=== PATIENT | female | born 1940 | race Caucasian/White ===

== ENCOUNTER → 2018-10-14 13:35 | Outpatient (CLI) | payer MEDICARE, SELFPAY ==
[2018-10-14 14:16] LABS: AST(SGOT) 23 U/L (15-37); Alanine Aminotransfer ALT/SGPT 36 U/L (13-56); Cholesterol 167 mg/dL (200); High Density Lipoprotein 81 mg/dL; Triglycerides 96 mg/dL; Very Low Density Lipoprotein 19 mg/dL (5-40)
== END ==
PROVIDERS: PCP Family Medicine; Visit Provider Family Medicine
DX: E78.5 Hyperlipidemia, unspecified (principal)
CPT/HCPCS: 36415; 80061; 84450; 84460

== ENCOUNTER → 2018-11-25 14:51 | Outpatient (CLI) | payer MEDICARE, SELFPAY ==
--- NOTE | 2018-11-25 14:55 | BI_ITS ---
MAMMOGRAPHY - BILATERAL SCREENING 3-D RICH SYNTHESIS REASON FOR EXAM: Female, 78 years old. Bilateral Screening 3-D tomosynthesis PERTINENT HISTORY: Family history of breast cancer in sister at age 62. TECHNIQUE: 2-D mammograms and 3-D Rich synthesis of the breast (s) were performed. CAD was performed. COMPARISON: October 18, 2017, October 01, 2016 FINDINGS: The breast composition is almost entirely fat. Scattered benign calcifications are seen. No dense spiculated masses or suspicious microcalcifications are identified. No architectural distortion is identified. There is no skin thickening or retraction. There has been no significant change since the prior study. BI/SCREENING MAMM (CAD), BILAT IMPRESSION: No mammographic signs of malignancy. Routine yearly mammograms recommended. ASSESSMENT CATEGORY: BIRADS Category 2: Benign. A letter regarding these results will be sent to the patient by the facility within 30 days. FOLLOW UP RECOMMENDATION: Yearly follow up mammogram recommended. (A) Approximately 10% of breast cancers are not detected by mammography. A normal mammogram should not delay biopsy of a clinically suspicious abnormality. Electronically Signed: Adarsh Limon MD at 11:16 EST , Service support ,
== END ==
PROVIDERS: Family Provider Family Medicine; PCP Family Medicine; Visit Provider Family Medicine
DX: Z12.31 Encounter for screening mammogram for malignant neoplasm of breast (principal); Z80.3 Family history of malignant neoplasm of breast
CPT/HCPCS: 77063; 77067

== ENCOUNTER → 2019-06-07 12:00 | Outpatient (CLI) | payer MEDICARE, SELFPAY ==
[2019-06-07 12:49] LABS: Absolute Neutrophil Count 1.9 X10^3/uL (2.0-7.7); Basophil# 0.02 X10^3/uL; Basophil% 0.5 % (0-1); Eosinophil# 0.07 X10^3/uL; Eosinophils% 1.9 % (0-5); Hematocrit 41.6 % (37-47); Hemoglobin 13.8 g/dl (12.0-15.0); Mean Corp Hgb Conc 33.2 g/gl (32-36); Mean Corpuscular Hgb 30.4 pg (27.0-32.0); Mean Corpuscular Volume 91.6 fL (81-99); Mean Platelet Vol. 10.5 fl (6.2-12.0); Neutrophil # 1.85 X10^3/uL (2.7-7.7); Neutrophil % 49.3 % (47-70); Platelet Count 246 K/mm3 (150-450); RBC Distribution Width CV 12.5 % (11.6-14.6); RBC Distribution Width SD 41.4 fl (35.1-43.9); Red Blood Count 4.54 M/mm3 (4.2-5.4); White Blood Count 3.8 K/mm3 (4.4-11.0)
[2019-06-07 12:54] LABS: POSITIVE COUNT NO; POSITIVE DIFFERENTIAL NO; POSITIVE MORPHOLOGY NO
[2019-06-07 13:01] LABS: ALB/GLOB Ratio 1.2 RATIO (0.9-2.4); AST(SGOT) 28 U/L (15-37); Alanine Aminotransfer ALT/SGPT 40 U/L (13-56); Alkaline Phosphatase 69 U/L (45-117); Anion Gap 9 (5-15); BUN 14 mg/dL (7-18); BUN/Creat Ratio 18.5 RATIO (10-20); Chloride 110 mmol/L (98-107); Creatinine, Serum 0.76 mg/dL (0.55-1.02); EST Glomerular Filtration Rate 79 mL/min (>60); Est Glom Filt Rate - Afr Amer 95 mL/min (>60); Globulin 3.4 g/dL (2.2-4.2); Glucose 99 mg/dL (74-106); Potassium 4.1 mmol/L (3.5-5.1); Protein, Total 7.4 g/dL (6.4-8.2); Sodium Level 144 mmol/L (136-145); Thyroid Stim Hormone (TSH) 0.56 uIU/mL (0.358-3.74)
== END ==
PROVIDERS: Family Provider Family Medicine; PCP Family Medicine; Visit Provider Family Medicine Geriatric Medicine
DX: R53.83 Other fatigue (principal)
CPT/HCPCS: 36415; 80053; 84443; 85025

== ENCOUNTER → 2019-07-06 06:47 | Outpatient (CLI) | payer MEDICARE, SELFPAY ==
--- NOTE | 2019-07-06 11:28 | PFTCOMP ---
COMPLETE PULMONARY FUNCTION TEST INTERPRETATION Brief HPI: Patient is a 78 year old female, currently under the care of Dr. Collins, who presents to [facility] for complete pulmonary function tests secondary to diagnosis of asthma. Respiratory therapist reports good effort and reproducible results. Interpretation: Forced expiration spirometry shows no large airways obstructive ventilatory defect with an FEV1 of 136% predicted. There is no significant bronchodilator response by strict ATS criteria. Spirograms are of good quality and plateau normally. The respiratory flow volume loop shows a normal pattern. Lung volumes by body plethysmography show an elevated total lung capacity at 5.97 L, 125% predicted. All other lung volumes are increased symmetrically. Diffusion capacity by carbon monoxide is normal at 85% predicted. The airway resistance is normal. No previous pulmonary function tests were available for review. Impression: These pulmonary function tests are within normal limits. Hyperinflation may be a normal physiologic variant.
== END ==
PROVIDERS: Family Provider Family Medicine Geriatric Medicine; PCP Family Medicine Geriatric Medicine; Referring Provider Family Medicine Geriatric Medicine; Visit Provider Family Medicine Geriatric Medicine
DX: J45.909 Unspecified asthma, uncomplicated (principal)
CPT/HCPCS: 94060; 94726; 94729

== ENCOUNTER → 2019-12-08 10:42 | Outpatient (CLI) | payer MEDICARE, SELFPAY ==
[2019-12-08 12:45] LABS: Absolute Lymphocyte Count 1.51 X10^3/uL (0.83-4.51); Absolute Neutrophil Count 2.1 X10^3/uL (2.0-7.7); Basophil# 0.02 X10^3/uL; Basophil% 0.5 % (0-1); Eosinophils% 2.4 % (0-5); Hematocrit 41.9 % (37-47); Hemoglobin 13.9 g/dL (12.0-15.0); Lymphocyte # 1.51 X10^3/ul (4.0); Lymphocyte % 36.9 % (19-41); Mean Corp Hgb Conc 33.2 g/dL (32-36); Mean Corpuscular Volume 90.5 fL (81-99); Mean Platelet Vol. 10.8 fl (6.2-12.0); Monocyte# 0.38 X10^3/uL; Monocyte% 9.3 % (0-10); NRBC Flagged by Analyzer 0 % (0-5); Neutrophil # 2.07 X10^3/uL (2.7-7.7); Neutrophil % 50.7 % (47-70); Platelet Count 242 K/mm3 (150-450); RBC Distribution Width CV 11.9 % (11.6-14.6); RBC Distribution Width SD 38.8 fl (35.1-43.9); Red Blood Count 4.63 M/mm3 (4.2-5.4); White Blood Count 4.1 K/mm3 (4.4-11.0)
[2019-12-08 12:52] LABS: Vitamin D,25 Hydroxy 40.8 ng/mL (29.95-100.01)
[2019-12-08 13:17] LABS: ALB/GLOB Ratio 1.1 RATIO (0.9-2.4); AST(SGOT) 20 U/L (15-37); Alanine Aminotransfer ALT/SGPT 29 U/L (13-56); Albumin, Serum 3.7 g/dL (3.2-5.0); Alkaline Phosphatase 73 U/L (45-117); Anion Gap 5 (5-15); BUN 13 mg/dL (7-18); BUN/Creat Ratio 16.9 RATIO (10-20); Calcium,Total 8.9 mg/dL (8.5-10.1); Chloride 109 mmol/L (98-107); Creatinine, Serum 0.77 mg/dL (0.55-1.02); EST Glomerular Filtration Rate 77 mL/min (>60); Est Glom Filt Rate - Afr Amer 94 mL/min (>60); Globulin 3.4 g/dL (2.2-4.2); Glucose 95 mg/dL (74-106); Potassium 3.7 mmol/L (3.5-5.1); Protein, Total 7.1 g/dL (6.4-8.2); Sodium Level 140 mmol/L (136-145); Thyroid Stim Hormone (TSH) 0.75 uIU/mL (0.358-3.74)
== END ==
PROVIDERS: Family Provider Family Medicine Geriatric Medicine; PCP Family Medicine Geriatric Medicine; Visit Provider Family Medicine Geriatric Medicine
DX: E55.9 Vitamin D deficiency, unspecified (principal); R53.83 Other fatigue
CPT/HCPCS: 36415; 80053; 82306; 84443; 85025

== ENCOUNTER → 2020-06-13 10:50 | Outpatient (CLI) | payer MEDICARE, SELFPAY ==
[2020-06-13 12:03] LABS: Absolute Lymphocyte Count 1.33 X10^3/uL (0.83-4.51); Absolute Neutrophil Count 1.7 X10^3/uL (2.0-7.7); Basophil# 0.02 X10^3/uL; Basophil% 0.6 % (0-1); Eosinophil# 0.13 X10^3/uL; Eosinophils% 3.7 % (0-5); Hemoglobin 13.6 g/dL (12.0-15.0); Lymphocyte # 1.33 X10^3/ul (4.0); Lymphocyte % 37.4 % (19-41); Mean Corp Hgb Conc 33.2 g/dL (32-36); Mean Corpuscular Hgb 30.8 pg (27.0-32.0); Mean Corpuscular Volume 92.8 fL (81-99); Monocyte% 11.2 % (0-10); NRBC Flagged by Analyzer 0 % (0-5); Neutrophil # 1.67 X10^3/uL (2.7-7.7); Neutrophil % 46.8 % (47-70); Platelet Count 232 K/mm3 (150-450); RBC Distribution Width CV 11.9 % (11.6-14.6); RBC Distribution Width SD 40.2 fl (35.1-43.9); Red Blood Count 4.42 M/mm3 (4.2-5.4); White Blood Count 3.6 K/mm3 (4.4-11.0)
[2020-06-13 12:22] LABS: Vitamin D,25 Hydroxy 56.5 ng/mL
[2020-06-13 12:36] LABS: ALB/GLOB Ratio 1.2 RATIO (0.9-2.4); AST(SGOT) 27 U/L (15-37); Alanine Aminotransfer ALT/SGPT 31 U/L (13-56); Alkaline Phosphatase 65 U/L (45-117); Anion Gap 4 (5-15); BUN 13 mg/dL (7-18); BUN/Creat Ratio 15.6 RATIO (10-20); Calcium,Total 8.8 mg/dL (8.5-10.1); Chloride 110 mmol/L (98-107); Creatinine, Serum 0.84 mg/dL (0.55-1.02); EST Glomerular Filtration Rate 70 mL/min (>60); Est Glom Filt Rate - Afr Amer 85 mL/min (>60); Globulin 3.3 g/dL (2.2-4.2); Glucose 100 mg/dL (74-106); Potassium 4.2 mmol/L (3.5-5.1); Protein, Total 7.3 g/dL (6.4-8.2); Sodium Level 141 mmol/L (136-145); Thyroid Stim Hormone (TSH) 0.66 uIU/mL (0.358-3.74)
== END ==
PROVIDERS: PCP Family Medicine Geriatric Medicine; Visit Provider Family Medicine Geriatric Medicine
DX: E55.9 Vitamin D deficiency, unspecified (principal); R53.83 Other fatigue
CPT/HCPCS: 36415; 80053; 82306; 84443; 85025

== ENCOUNTER → 2020-09-30 15:22 | Outpatient (CLI) | payer MEDICARE, SELFPAY ==
--- NOTE | 2020-09-30 15:25 | BI_ITS ---
MAMMOGRAPHY - BILATERAL SCREENING REASON FOR EXAM: Female, 80 years old. Routine annual screening examination. PERTINENT HISTORY: Sister with breast cancer. Aunt with breast cancer. TECHNIQUE: Digital bilateral breast rich (3D mammographic acquisition) in the CC and MLO projections. 2-D mediolateral oblique (MLO) and craniocaudad (CC) views of both breasts were obtained. CAD: Full Field Digital Mammography with Computer Added Detection was performed. COMPARISON: Comparison is made with prior study dated 11/25/2018 and 10/18/2017. FINDINGS: Breast Composition: There are scattered areas of fibroglandular density. There are no dominant masses or suspicious calcifications. No other significant abnormalities are identified. There has been no significant change since the prior study. BI/SCREEN MAMM (CAD) W/RICH BILAT IMPRESSION: Stable bilateral screening mammogram. Yearly follow-up mammogram recommended. (A) ASSESSMENT CATEGORY: BIRADS Category 1: Negative. A letter regarding these results will be sent to the patient by the facility within 30 days. Approximately 10% of breast cancers are not detected by mammography. A normal mammogram should not delay biopsy of a clinically suspicious abnormality. [id number] Electronically Signed: Dustin Raza, at 8:28 EST , Service support ,
== END ==
PROVIDERS: PCP Family Medicine Geriatric Medicine; Referring Provider Family Medicine Geriatric Medicine; Visit Provider Family Medicine Geriatric Medicine
DX: Z12.31 Encounter for screening mammogram for malignant neoplasm of breast (principal); Z80.3 Family history of malignant neoplasm of breast
CPT/HCPCS: 77063; 77067

== ENCOUNTER → 2020-12-12 11:35 | Outpatient (CLI) | payer MEDICARE, SELFPAY ==
[2020-12-12 12:32] LABS: Absolute Lymphocyte Count 1.74 X10^3/uL (0.83-4.51); Basophil# 0.03 X10^3/uL; Basophil% 0.7 % (0-1); Eosinophil# 0.11 X10^3/uL; Eosinophils% 2.5 % (0-5); Hematocrit 42.6 % (37-47); Hemoglobin 14.5 g/dL (12.0-15.0); Lymphocyte # 1.74 X10^3/ul (4.0); Lymphocyte % 39.9 % (19-41); Mean Corpuscular Hgb 31.2 pg (27.0-32.0); Mean Corpuscular Volume 91.6 fL (81-99); Monocyte# 0.47 X10^3/uL; Monocyte% 10.8 % (0-10); NRBC Flagged by Analyzer 0 % (0-5); Neutrophil % 45.9 % (47-70); Platelet Count 257 K/mm3 (150-450); RBC Distribution Width CV 11.8 % (11.6-14.6); RBC Distribution Width SD 39.3 fl (35.1-43.9); Red Blood Count 4.65 M/mm3 (4.2-5.4); White Blood Count 4.4 K/mm3 (4.4-11.0)
[2020-12-12 12:48] LABS: Vitamin D,25 Hydroxy 38.3 ng/mL
[2020-12-12 12:54] LABS: ALB/GLOB Ratio 1.1 RATIO (0.9-2.4); AST(SGOT) 24 U/L (15-37); Alanine Aminotransfer ALT/SGPT 30 U/L (13-56); Albumin, Serum 3.9 g/dL (3.2-5.0); Alkaline Phosphatase 74 U/L (45-117); Anion Gap 4 (5-15); BUN 11 mg/dL (7-18); BUN/Creat Ratio 14.4 RATIO (10-20); Calcium,Total 8.7 mg/dL (8.5-10.1); Chloride 107 mmol/L (98-107); Creatinine, Serum 0.76 mg/dL (0.55-1.02); EST Glomerular Filtration Rate 78 mL/min (>60); Est Glom Filt Rate - Afr Amer 94 mL/min (>60); Globulin 3.4 g/dL (2.2-4.2); Glucose 90 mg/dL (74-106); Potassium 3.7 mmol/L (3.5-5.1); Protein, Total 7.3 g/dL (6.4-8.2); Sodium Level 140 mmol/L (136-145); Thyroid Stim Hormone (TSH) 0.74 uIU/mL (0.358-3.74)
== END ==
PROVIDERS: PCP Family Medicine Geriatric Medicine; Visit Provider Family Medicine Geriatric Medicine
DX: E55.9 Vitamin D deficiency, unspecified (principal); R53.83 Other fatigue
CPT/HCPCS: 36415; 80053; 82306; 84443; 85025

== ENCOUNTER 2021-01-27 14:00 | Outpatient (RCR) | payer MEDICARE, SELFPAY ==
--- NOTE | 2020-12-19 12:45 | HP.PTEVAL ---
Patient's Visit Information BETTE SALEH is a 80 year old F referred to Physical Therapy by Dr. Bolivar Collins MD with a diagnosis of s2 radiculopathy. Date of Evaluation: 12/19/20 Physical Therapist: Dawit Bonds, DPT, OCS, CSCS - Visit Plan Frequency: 2-3x /Week Duration: 4-6 Weeks Plan: 2-3x/week for 2-4 weeks to start for. 1. R gastroc rollout and stretch. 2. R HS and gastroc strength. 3. LB ext ROM and core strength. EG to recheck in two weeks to check progress or lack thereof. - Subjective Pain in R leg near calf for 3 years and calf is withering away. Not sure why it started but did hurt in her foot adn toes are a little numb. Stays active in summer swimming adn hour per day. very flexible. Just noticed r calf smaller. No back pain. No other treatments or exercises.Not as active with ex in winter. Sleep is OK. Spends winter cleaning house. Hobbles a little in am. Painful at 5/10 intermittent , good days and bad days. - Pain R calf Pain Intensity (Out of 10): 0 Pain Intensity Range: 0, 5 - Objective Walks normal, transfers normal, steps normal reciprocal without rail. SLS is symmetrical. Pt is in good shape and moves well. No tenderness noted in calves or LB. Some pain in R knee medially with HS testing. R gastroc 34 cm adn L 35.5 at large point. gastroc strength 76# B. Heel rasie easy B, but R calf defintiely atrophied vs L. LB aROM ext min limited no pain, flexion and SB WNL and no pain. reflexes 2/3 B patella and 1/3 B gastroc. Sensation WNL to gross light touch clinically but does have longstanding medial R foot numbness 3+ years subjectively. - Goals Goal 1:: Patient feel pain R calf 75% better at 1/10 or less. Goal Time Frame: 4-6 Weeks Goal 2:: Pt feel 75% better overall with back ROM and calf strength. Goal Time Frame: 4-6 Weeks Goal 3:: I appropr HeP to minimzie future problems. Goal Time Frame: 4-6 Weeks - Rehabilitation Potential Physical Therapy Diagnosis: possible s2 radiculopathy. Rehabilitation Potential: Questionable - Anticipated Interventions Patient/Client Instruction: Educate patient on: Condition, Plan of Care For the Purpose of:: To decrease pain, To increase ROM, To improve muscle performance and motor function Therapeutic Exercise to Include: Strength training, Flexibilty training, Passive ROM, Active ROM For the Purpose of:: To decrease pain, To increase ROM, To improve muscle performance and motor function Manual Therapy Techniques to Include: Soft tissue mobilization For the Purpose of:: To decrease pain, To improve nutrient delivery to tissue Thank you for the opportunity to evaluate your patient. For Medicare and Medicare HMO plans, please review the plan of care and approve it. It will need to be FAXED BACK to us at [phone] for Medicare purposes. For Medicare only, by signing this I certify the plan of care. Please let me know if there are questions or concerns regarding this plan of care. Physician Signature: Date:
--- NOTE | 2021-01-27 14:34 | HP.PTDCSUM ---
It has been my pleasure to treat BETTE SALEH referred by Dr. Bolivar Collins MD, with the diagnosis of s2 radiculopathy for a total of 9 visit(s). Discharge Date: 01/27/21 Please see the following information for a summary of their discharge status. Subjective: Feels like calf is improving and getting stronger. Easier to do heel raises. no pain really anymore. Feels like she can continue to progress at home. will f/u with Dr. Collins in April. R calf Pain Intensity (Out of 10): 0 % Improvement: 33 Objective/Function: Full L/S AROM without pain today, moving well and she is pleased with calf growth although still obviously R smaller than L. Will cotninue to work on this via HEP. Goal 1:: Patient feel pain R calf 75% better at 1/10 or less. Goal Progress: Goal Met Goal 2:: Pt feel 75% better overall with back ROM and calf strength. Goal Progress: Goal Met Goal 3:: I appropr HeP to minimzie future problems. Goal Progress: Goal Met Plan: d/c Discharge Comments: Will continue via HEP. If there are questions or concerns regarding this patient's physical therapy, please feel free to call me at [phone]. Thank you for the referral of this patient. Sincerely, Dawit Bonds, DPT, OCS, CSCS
== END 2021-01-27 19:00 | disposition home or self-care (01) ==
LOC: PT 14:00
PROVIDERS: PCP Family Medicine Geriatric Medicine; Referring Provider Family Medicine Geriatric Medicine; Visit Provider Family Medicine Geriatric Medicine
DX: M54.18 Radiculopathy, sacral and sacrococcygeal region (principal)
CPT/HCPCS: 97110; 97162; 97164

== ENCOUNTER → 2021-06-16 09:40 | Outpatient (CLI) | payer MEDICARE, SELFPAY ==
[2021-06-16 12:41] LABS: Absolute Lymphocyte Count 1.67 X10^3/uL (0.83-4.51); Absolute Neutrophil Count 1.7 X10^3/uL (2.0-7.7); Basophil# 0.03 X10^3/uL; Basophil% 0.8 % (0-1); Eosinophil# 0.13 X10^3/uL; Eosinophils% 3.3 % (0-5); Hematocrit 43.5 % (37-47); Hemoglobin 14.2 g/dL (12.0-15.0); Lymphocyte # 1.67 X10^3/ul (0.83-4.51); Lymphocyte % 42.4 % (19-41); Mean Corp Hgb Conc 32.6 g/dL (32-36); Mean Corpuscular Hgb 30.2 pg (27.0-32.0); Mean Corpuscular Volume 92.6 fL (81-99); Mean Platelet Vol. 10.7 fl (6.2-12.0); Monocyte# 0.42 X10^3/uL; Monocyte% 10.7 % (0-10); NRBC Flagged by Analyzer 0 % (0-5); Neutrophil # 1.69 X10^3/uL (2.7-7.7); Neutrophil % 42.8 % (47-70); Platelet Count 254 K/mm3 (150-450); RBC Distribution Width CV 11.9 % (11.6-14.6); RBC Distribution Width SD 40.8 fl (35.1-43.9); White Blood Count 3.9 K/mm3 (4.4-11.0)
[2021-06-16 12:52] LABS: Vitamin D,25 Hydroxy 40.7 ng/mL
[2021-06-16 13:09] LABS: ALB/GLOB Ratio 1.1 RATIO (0.9-2.4); AST(SGOT) 24 U/L (15-37); Alanine Aminotransfer ALT/SGPT 31 U/L (13-56); Albumin, Serum 3.8 g/dL (3.2-5.0); Alkaline Phosphatase 78 U/L (45-117); Anion Gap 4 (5-15); BUN 13 mg/dL (7-18); BUN/Creat Ratio 17.6 RATIO (10-20); Calcium,Total 8.8 mg/dL (8.5-10.1); Chloride 110 mmol/L (98-107); Creatinine, Serum 0.74 mg/dL (0.55-1.02); EST Glomerular Filtration Rate 81 mL/min (>60); Est Glom Filt Rate - Afr Amer 98 mL/min (>60); Globulin 3.4 g/dL (2.2-4.2); Glucose 96 mg/dL (74-106); Potassium 4.2 mmol/L (3.5-5.1); Protein, Total 7.2 g/dL (6.4-8.2); Sodium Level 141 mmol/L (136-145); Thyroid Stim Hormone (TSH) 0.61 uIU/mL (0.358-3.74)
== END ==
PROVIDERS: PCP Family Medicine Geriatric Medicine; Visit Provider Family Medicine Geriatric Medicine
DX: E55.9 Vitamin D deficiency, unspecified (principal); R53.83 Other fatigue
CPT/HCPCS: 36415; 80053; 82306; 84443; 85025

== ENCOUNTER 2022-01-28 12:47 | Outpatient (CLI) | payer MEDICARE, SELFPAY ==
[2022-01-28 16:02] LABS: Absolute Neutrophil Count 2.3 X10^3/uL (2.0-7.7); Basophil# 0.05 X10^3/uL; Basophil% 0.9 % (0-1); Eosinophils% 5.6 % (0-5); Hematocrit 40.8 % (37-47); Hemoglobin 14.3 g/dL (12.0-15.0); Lymphocyte % 40.7 % (19-41); Mean Corpuscular Hgb 31.8 pg (27.0-32.0); Mean Corpuscular Volume 90.9 fL (81-99); Mean Platelet Vol. 10.3 fl (6.2-12.0); Monocyte# 0.51 X10^3/uL; Monocyte% 9.4 % (0-10); NRBC Flagged by Analyzer 0 % (0-5); Neutrophil # 2.32 X10^3/uL (2.7-7.7); Platelet Count 274 K/mm3 (150-450); RBC Distribution Width CV 11.9 % (11.6-14.6); RBC Distribution Width SD 39.6 fl (35.1-43.9); Red Blood Count 4.49 M/mm3 (4.2-5.4); White Blood Count 5.4 K/mm3 (4.4-11.0)
[2022-01-28 16:26] LABS: ALB/GLOB Ratio 1.1 RATIO (0.9-2.4); AST(SGOT) 34 U/L (15-37); Alanine Aminotransfer ALT/SGPT 44 U/L (13-56); Albumin, Serum 3.8 g/dL (3.2-5.0); Alkaline Phosphatase 73 U/L (45-117); Anion Gap 6 (5-15); BUN 12 mg/dL (7-18); BUN/Creat Ratio 17.6 RATIO (10-20); Calcium,Total 8.8 mg/dL (8.5-10.1); Chloride 105 mmol/L (98-107); Creatinine, Serum 0.68 mg/dL (0.55-1.02); EST Glomerular Filtration Rate 89 mL/min (>60); Est Glom Filt Rate - Afr Amer 107 mL/min (>60); Globulin 3.6 g/dL (2.2-4.2); Glucose 88 mg/dL (74-106); Potassium 3.5 mmol/L (3.5-5.1); Protein, Total 7.4 g/dL (6.4-8.2); Sodium Level 140 mmol/L (136-145); Thyroid Stim Hormone (TSH) 0.98 uIU/mL (0.358-3.74); Vitamin D,25 Hydroxy 39.5 ng/mL
== END 2022-01-28 23:59 | disposition home or self-care (01) ==
LOC: POLAB3 12:48
PROVIDERS: PCP Family Medicine Geriatric Medicine; Visit Provider Family Medicine Geriatric Medicine
DX: E55.9 Vitamin D deficiency, unspecified (principal); R53.83 Other fatigue
CPT/HCPCS: 36415; 80053; 82306; 84443; 85025

== ENCOUNTER → 2022-06-24 | Outpatient (CLI) | payer MEDICARE, SELFPAY ==
[2022-06-24 17:17] LABS: Absolute Lymphocyte Count 1.98 X10^3/uL (0.83-4.51); Absolute Neutrophil Count 2.1 X10^3/uL (2.0-7.7); Basophil# 0.02 X10^3/uL; Basophil% 0.4 % (0-1); Eosinophil# 0.09 X10^3/uL; Hematocrit 40.7 % (37-47); Hemoglobin 13.9 g/dL (12.0-15.0); Lymphocyte # 1.98 X10^3/ul (0.83-4.51); Mean Corp Hgb Conc 34.2 g/dL (32-36); Mean Corpuscular Hgb 31.6 pg (27.0-32.0); Mean Corpuscular Volume 92.5 fL (81-99); Mean Platelet Vol. 10.3 fl (6.2-12.0); Monocyte# 0.45 X10^3/uL; Monocyte% 9.8 % (0-10); NRBC Flagged by Analyzer 0 % (0-5); Neutrophil # 2.05 X10^3/uL (2.7-7.7); Neutrophil % 44.6 % (47-70); Platelet Count 243 K/mm3 (150-450); RBC Distribution Width SD 41.1 fl (35.1-43.9); White Blood Count 4.6 K/mm3 (4.4-11.0)
[2022-06-24 17:41] LABS: ALB/GLOB Ratio 1.2 RATIO (0.9-2.4); AST(SGOT) 29 U/L (15-37); Alanine Aminotransfer ALT/SGPT 37 U/L (13-56); Albumin, Serum 3.9 g/dL (3.2-5.0); Alkaline Phosphatase 68 U/L (45-117); Anion Gap 6 (5-15); BUN 13 mg/dL (7-18); BUN/Creat Ratio 17.8 RATIO (10-20); Calcium,Total 9.2 mg/dL (8.5-10.1); Chloride 107 mmol/L (98-107); Creatinine, Serum 0.73 mg/dL (0.55-1.02); EST Glomerular Filtration Rate 82 mL/min (>60); Est Glom Filt Rate - Afr Amer 99 mL/min (>60); Globulin 3.3 g/dL (2.2-4.2); Glucose 84 mg/dL (74-106); Protein, Total 7.2 g/dL (6.4-8.2); Sodium Level 137 mmol/L (136-145); Thyroid Stim Hormone (TSH) 0.53 uIU/mL (0.358-3.74)
== END | disposition home or self-care (01) ==
LOC: POLAB3 14:28
PROVIDERS: PCP Family Medicine Geriatric Medicine; Visit Provider Family Medicine Geriatric Medicine
DX: E55.9 Vitamin D deficiency, unspecified (principal); R53.83 Other fatigue
CPT/HCPCS: 36415; 80053; 82306; 84443; 85025

== ENCOUNTER → 2022-07-02 | Outpatient (CLI) | payer MEDICARE, SELFPAY ==
--- NOTE | 2022-07-02 07:46 | BI_ITS ---
MAMMOGRAPHY - BILATERAL SCREENING 3-D TOMOSYNTHESIS REASON FOR EXAM: Female, 81 years old. Annual screening for breast cancer. PERTINENT HISTORY: History of breast cancer in sister at age 62 and paternal aunt, age not identified. TECHNIQUE: 2-D mammograms and 3-D Tomosynthesis of the breast (s) were performed. CAD was performed. COMPARISON: 09/30/2020, 11/25/2018. FINDINGS: The breast composition is almost entirely fat. Stable scattered benign calcifications. No dense spiculated masses or suspicious microcalcifications are identified. No architectural distortion is identified. There is no skin thickening or retraction. BI/SCRN MAMM (CAD)W/RICH BILAT IMPRESSION: No interval change and no mammographic signs of malignancy. Routine yearly mammograms recommended. ASSESSMENT CATEGORY: BIRADS Category 2: Benign. A letter regarding these results will be sent to the patient by the facility within 30 days. FOLLOW UP RECOMMENDATION: Yearly follow up mammogram recommended. (A) Approximately 10% of breast cancers are not detected by mammography. A normal mammogram should not delay biopsy of a clinically suspicious abnormality. Electronically Signed: Adarsh Limon MD at 15:15 EDT ,
== END | disposition home or self-care (01) ==
LOC: OPBI 07:45
PROVIDERS: PCP Family Medicine Geriatric Medicine; Referring Provider Family Medicine Geriatric Medicine; Visit Provider Family Medicine Geriatric Medicine
DX: Z12.31 Encounter for screening mammogram for malignant neoplasm of breast (principal); Z80.3 Family history of malignant neoplasm of breast
CPT/HCPCS: 77063; 77067

== ENCOUNTER → 2022-12-24 | Outpatient (CLI) | payer MEDICARE, SELFPAY ==
[2022-12-24 15:36] LABS: Absolute Lymphocyte Count 1.96 X10^3/uL (0.83-4.51); Absolute Neutrophil Count 2.6 X10^3/uL (2.0-7.7); Basophil# 0.02 X10^3/uL; Basophil% 0.4 % (0-1); Eosinophils% 1.9 % (0-5); Hematocrit 42.5 % (37-47); Hemoglobin 13.8 g/dL (12.0-15.0); Lymphocyte # 1.96 X10^3/ul (0.83-4.51); Lymphocyte % 37.7 % (19-41); Mean Corp Hgb Conc 32.5 g/dL (32-36); Mean Corpuscular Hgb 30.2 pg (27.0-32.0); Mean Platelet Vol. 10.8 fl (6.2-12.0); Monocyte# 0.52 X10^3/uL; NRBC Flagged by Analyzer 0 % (0-5); Neutrophil # 2.59 X10^3/uL (2.7-7.7); Neutrophil % 49.8 % (47-70); Platelet Count 258 K/mm3 (150-450); RBC Distribution Width CV 11.9 % (11.6-14.6); RBC Distribution Width SD 40.6 fl (35.1-43.9); Red Blood Count 4.57 M/mm3 (4.2-5.4); White Blood Count 5.2 K/mm3 (4.4-11.0)
[2022-12-24 15:50] LABS: Vitamin D,25 Hydroxy 39.6 ng/mL
[2022-12-24 16:00] LABS: ALB/GLOB Ratio 1.1 RATIO (0.9-2.4); AST(SGOT) 43 U/L (15-37); Alanine Aminotransfer ALT/SGPT 62 U/L (13-56); Albumin, Serum 3.9 g/dL (3.2-5.0); Alkaline Phosphatase 77 U/L (45-117); Anion Gap 8 (5-15); BUN 13 mg/dL (7-18); BUN/Creat Ratio 16.5 RATIO (10-20); Calcium,Total 9.4 mg/dL (8.5-10.1); Chloride 106 mmol/L (98-107); Creatinine, Serum 0.79 mg/dL (0.55-1.02); EST Glomerular Filtration Rate 75 mL/min (>60); Est Glom Filt Rate - Afr Amer 90 mL/min (>60); Globulin 3.4 g/dL (2.2-4.2); Glucose 84 mg/dL (74-106); Protein, Total 7.3 g/dL (6.4-8.2); Sodium Level 141 mmol/L (136-145); Thyroid Stim Hormone (TSH) 0.92 uIU/mL (0.358-3.74)
== END | disposition home or self-care (01) ==
LOC: POLAB3 13:02
PROVIDERS: PCP Family Medicine Geriatric Medicine; Visit Provider Family Medicine Geriatric Medicine
DX: E55.9 Vitamin D deficiency, unspecified (principal); R53.83 Other fatigue
CPT/HCPCS: 36415; 80053; 82306; 84443; 85025

== ENCOUNTER → 2023-06-30 | Outpatient (CLI) | payer MEDICARE, SELFPAY ==
[2023-06-30 17:26] LABS: Absolute Lymphocyte Count 1.48 X10^3/uL (0.83-4.51); Absolute Neutrophil Count 2.3 X10^3/uL (2.0-7.7); Basophil# 0.03 X10^3/uL; Basophil% 0.7 % (0-1); Eosinophils% 2.3 % (0-5); Hematocrit 41.5 % (37-47); Hemoglobin 13.6 g/dL (12.0-15.0); Lymphocyte # 1.48 X10^3/ul (0.83-4.51); Lymphocyte % 34.2 % (19-41); Mean Corp Hgb Conc 32.8 g/dL (32-36); Mean Corpuscular Hgb 30.4 pg (27.0-32.0); Mean Corpuscular Volume 92.6 fL (81-99); Mean Platelet Vol. 10.7 fl (6.2-12.0); Monocyte# 0.38 X10^3/uL; Monocyte% 8.8 % (0-10); NRBC Flagged by Analyzer 0 % (0-5); Neutrophil # 2.33 X10^3/uL (2.7-7.7); Neutrophil % 53.8 % (47-70); Platelet Count 236 K/mm3 (150-450); RBC Distribution Width CV 12.1 % (11.6-14.6); RBC Distribution Width SD 41.5 fl (35.1-43.9); Red Blood Count 4.48 M/mm3 (4.2-5.4); White Blood Count 4.3 K/mm3 (4.4-11.0)
[2023-06-30 18:10] LABS: Vitamin D,25 Hydroxy 49.2 ng/mL
[2023-06-30 18:20] LABS: ALB/GLOB Ratio 1.1 RATIO (0.9-2.4); AST(SGOT) 34 U/L (15-37); Alanine Aminotransfer ALT/SGPT 36 U/L (13-56); Albumin, Serum 3.7 g/dL (3.2-5.0); Alkaline Phosphatase 66 U/L (45-117); Anion Gap 4 (5-15); BUN 11 mg/dL (7-18); Chloride 108 mmol/L (98-107); Creatinine, Serum 0.74 mg/dL (0.55-1.02); EST Glomerular Filtration Rate 81 mL/min (>60); Est Glom Filt Rate - Afr Amer 98 mL/min (>60); Globulin 3.4 g/dL (2.2-4.2); Glucose 93 mg/dL (74-106); Potassium 3.7 mmol/L (3.5-5.1); Protein, Total 7.1 g/dL (6.4-8.2); Sodium Level 140 mmol/L (136-145)
== END | disposition home or self-care (01) ==
PROVIDERS: PCP Family Medicine Geriatric Medicine; Visit Provider Family Medicine Geriatric Medicine
DX: E55.9 Vitamin D deficiency, unspecified (principal); R53.83 Other fatigue
CPT/HCPCS: 36415; 80053; 82306; 84443; 85025

== ENCOUNTER → 2023-07-08 | Outpatient (CLI) | payer MEDICARE, SELFPAY ==
--- NOTE | 2023-07-08 13:28 | BI_ITS ---
MAMMOGRAPHY - BILATERAL SCREENING REASON FOR EXAM: Female, 82 years old. Routine annual screening examination. PERTINENT HISTORY: Sister with breast cancer. Aunt with breast cancer. TECHNIQUE: Digital bilateral breast rich (3D mammographic acquisition) in the CC and MLO projections. 2-D mediolateral oblique (MLO) and craniocaudad (CC) views of both breasts were obtained. CAD: Full Field Digital Mammography with Computer Added Detection was performed. COMPARISON: Comparison is made with prior examination July 02, 2022 and September 30, 2020. FINDINGS: Breast Composition: There are scattered areas of fibroglandular density. There are no dominant masses or suspicious calcifications. No other significant abnormalities are identified. There has been no significant change since the prior study. BI/SCRN MAMM (CAD)W/RICH BILAT IMPRESSION: Stable bilateral screening mammogram. Yearly follow-up mammogram recommended. (A) ASSESSMENT CATEGORY: BIRADS Category 1: Negative. A letter regarding these results will be sent to the patient by the facility within 30 days. Approximately 10% of breast cancers are not detected by mammography. A normal mammogram should not delay biopsy of a clinically suspicious abnormality. [id number] Electronically Signed: Dustin Raza MD at 14:52 EDT ,
== END | disposition home or self-care (01) ==
LOC: OPBI 13:25
PROVIDERS: PCP Family Medicine Geriatric Medicine; Referring Provider Family Medicine Geriatric Medicine; Visit Provider Family Medicine Geriatric Medicine
DX: Z12.31 Encounter for screening mammogram for malignant neoplasm of breast (principal); Z80.3 Family history of malignant neoplasm of breast
CPT/HCPCS: 77063; 77067

== ENCOUNTER → 2023-09-06 | Outpatient (CLI) | payer MEDICARE, SELFPAY ==
--- NOTE | 2023-09-06 13:48 | ECHOD_ITS ---
Reason For Study: PAROXYSMAL ATRIAL FIBRILLATION Procedure This was a 2D Doppler, Color Flow transthoracic echocardiogram. Exam performed in department. Left Ventricle Normal LV size. Left ventricular systolic function is normal. The estimated ejection fraction is 60 %. Stage 1 diastolic dysfunction. No regional wall motion abnormalities noted. Right Ventricle Normal RV size. Normal systolic function. Atria Normal left atrium. Normal right atrium. Mitral Valve Normal mitral valve. Tricuspid Valve Normal tricuspid valve. Mild tricuspid valve insufficiency. Pulmonary artery systolic pressure is 24 mmHg. Aortic Valve Normal aortic valve. Trisinus/trileaflet aortic valve. Pulmonic Valve Normal pulmonic valve. Great Vessels Normal aortic root. The pulmonary artery is normal size. Normal inferior vena cava. Pericardium/Pleural No pericardial effusion. MMode/2D Measurements & Calculations LVIDd: 4.0 cm IVSd: 1.2 cm Ao root diam: 3.6 cm LVIDs: 2.7 cm LVPWd: 1.0 cm FS: 33.0 % LAV(MOD-bp): 59.9 ml EDV(MOD-sp4): 91.5 ml EDV(MOD-sp2): 64.2 ml LAV(MOD-bp) Indexed: 35.1 ml/m2 ESV(MOD-sp4): 38.2 ml ESV(MOD-sp2): 21.8 ml LAV(MOD-sp2): 63.0 ml EF(MOD-sp4): 58.2 % EF(MOD-sp2): 66.0 % LAV(MOD-sp4): 54.8 ml SV(MOD-sp4): 53.3 ml SV(MOD-sp2): 42.4 ml LA A4 area: 18.5 cm2 LA dimension(2D): 4.2 cm TAPSE: 2.3 cm RA A4 area: 14.8 cm2 Time Measurements MV dec time: 0.24 sec Doppler Measurements & Calculations MV E max tha: 68.9 cm/sec Lat Peak E' Tha: 5.7 cm/sec Med Peak E' Tha: 4.8 cm/sec MV A max tha: 93.2 cm/sec E/E' lat: 12.0 E/E' med: 14.3 MV E/A: 0.74 MV V2 max: 96.9 cm/sec Ao V2 max: 137.4 cm/sec LV V1 max: 97.5 cm/sec MV max P.8 mmHg Ao max P.6 mmHg LV V1 max P.8 mmHg MV V2 mean: 48.6 cm/sec Ao V2 mean: 90.8 cm/sec LV V1 mean P.0 mmHg MV mean P.1 mmHg Ao mean P.8 mmHg LV V1 mean: 66.2 cm/sec MV V2 VTI: 32.2 cm Ao V2 VTI: 34.0 cm LV V1 VTI: 25.1 cm AV (velocity ratio): 0.74 PA V2 max: 79.6 cm/sec TR max tha: 232.3 cm/sec PA V2 mean: 57.5 cm/sec TR max P.6 mmHg ECHO/Echo Complete Interpretation Summary Normal LV size. Left ventricular systolic function is normal. The estimated ejection fraction is 60 %. Stage 1 diastolic dysfunction. Pulmonary artery systolic pressure is 24 mmHg. Ordering Physician: Genaro Dobson Referring Physician: Bolivar Collins Chi Performed By: Cindy Vasquez, RENETTA, RVT
== END | disposition home or self-care (01) ==
PROVIDERS: PCP Family Medicine Geriatric Medicine; Referring Provider Internal Medicine Cardiovascular Disease; Visit Provider Internal Medicine Cardiovascular Disease
DX: I48.0 Paroxysmal atrial fibrillation (principal)
CPT/HCPCS: 93306

== ENCOUNTER → 2023-12-20 | Outpatient (CLI) | payer MEDICARE, SELFPAY ==
--- NOTE | 2023-12-20 10:40 | RAD_ITS ---
INDICATION: RIGHT HIP PAIN EXAMINATION/TECHNIQUE: X-RAY - XR Hip Unilateral with Pelvis when performed; 2-3 Views COMPARISON: No relevant prior comparison study available FINDINGS: PELVIC BONES: No displaced fracture, destructive or sclerotic lesions. Note that overlapping bowel shadows may however obscure fine detail. Sacroiliac joints are unremarkable. There are degenerative changes of the pubic symphysis. HIPS: There are degenerative changes of the hips characterized by joint space narrowing subchondral sclerosis and subchondral cysts. SOFT TISSUES: No soft tissue swelling or gas. RAD/HIP, UNI W/ Pelvis 2-3 Views IMPRESSION: Degenerative changes. Electronically Signed: Vee Sorensen MD at 11:10 EST ,
--- NOTE | 2023-12-20 10:40 | RAD_ITS ---
INDICATION: NECK PAIN EXAMINATION/TECHNIQUE: X-RAY - XR Spine Cervical 4 or 5 Views COMPARISON: No relevant prior comparison study available FINDINGS: VERTEBRAE: Preserved vertebral body height. No fracture. No spondylolisthesis. Preservation of the normal cervical lordosis. There is multilevel facet arthropathy. DISCS: There is multilevel degenerative disc disease. NECK SOFT TISSUES: No prevertebral soft tissue widening. LUNG APICES: Clear. RAD/Cerv Spine 2 or 3 Views IMPRESSION: Multilevel degenerative changes. Electronically Signed: Vee Sorensen MD at 11:13 EST ,
== END | disposition home or self-care (01) ==
PROVIDERS: PCP Family Medicine Geriatric Medicine; Referring Provider Family Medicine Geriatric Medicine; Visit Provider Family Medicine Geriatric Medicine
DX: S09.90XA Unspecified injury of head, initial encounter (principal); M54.2 Cervicalgia; M25.551 Pain in right hip
CPT/HCPCS: 72040; 73502

== ENCOUNTER → 2023-12-27 | Outpatient (CLI) | payer MEDICARE, SELFPAY ==
--- NOTE | 2023-12-27 14:42 | CT_ITS ---
STUDY: CT BRAIN WITHOUT CONTRAST REASON FOR EXAM: Female, 83 years old. CLOSED HEAD INJURY RADIATION DOSAGE (If Supplied By Facility): CTDIvol = ( 44.99 ) mGy, DLP = ( 762.36 ) mGycm TECHNIQUE: Transaxial CT imaging of the brain was performed without administration of intravenous contrast material. Individualized dose optimization techniques were used for this CT. COMPARISON: No relevant priors. FINDINGS: Normal soft tissue structures. Normal calvarium. There is mild cerebral atrophy with widening of the extra-axial spaces and ventricular dilatation. There are areas of decreased attenuation within the white matter tracts of the supratentorial brain, consistent with microvascular disease changes. Focal area of decreased attenuation in the right basal ganglia suggestive of a lacunar infarct. This may be subacute. Normal brainstem. Normal cerebellum. There is no intracranial hemorrhage. There are no findings of an acute ischemic infarction. Normal visualized paranasal sinuses. CT/Brain/Head without Contrast IMPRESSION: Chronic involutional changes of the brain. Focal irregular decreased attenuation in the right basal ganglion. Clinical correlation is recommended. Electronically Signed: Dustin Raza MD at 15:35 EST ,
--- OUTSIDE RECORDS SUMMARY | 2023-12-27 14:55 | XMS RPT_ITS | CCD ---
Author Name Unknown Address [address] [place] [address] Organization [facility] Care Team Providers Care Network Firewall Engineer Name Role Phone Lela Love Primary Care Provider Allergies Allergy Classification Reported Allergen(s) Allergy Type Date of Onset Reaction(s) Facility (1 source) chlorproMAZINE Drug Allergy 03-15-[address] [facility] Work Phone: Medications Completed/Discontinued Medications Medication Drug Class(es) Dates Sig (Normalized) Sig (Original) [id number] 200 actuat albuterol 0.09 mg/actuat metered dose inhaler (1 source) beta2-Adrenergic Agonist albuterol HFA (PROAI R HFA) 90 mcg/actuation inhaler Inhale 2 Puffs as instructed as needed. 0 Active Problems Active Problems Problem Classification Problem Date Documented Da te Episodic/Chronic Immunizations and screening for infectious disease (1 source) Patient encounter status; Translations: [Encounter for immunization] Episodic Past or Other Problems Problem Classification Problem Date Documented Da te Episodic/Chronic Allergic reactions (3 sources) Radiation-induced dermatosis; Translations: [Other skin changes due to chronic exposure to nonionizing radiation] Onset: 12-25-2008 12-25-2008 Episodic Other and unspecified benign neoplasm (1 source) Benign neoplasm of skin of trunk; Translations: [Other benign neoplasm of skin of trunk] Onset: 09-17-2006 09-17-2006 Episodic Other and unspecified benign neoplasm (1 source) Benign neoplasm of skin of face; Translations: [Other benign neoplasm of skin of unspecified part of face] Onset: 12-25-2008 12-25-2008 Episodic Other and unspecified benign neoplasm (1 source) Dermatofibroma; Translations: [Other benign neoplasm of skin of unspecified lower limb, including hip] Onset: 10-02-2010 10-02-2010 Episodic Other and unspecified benign neoplasm (1 source) Senile angioma; Translations: [Hemangioma of skin and subcutaneous tissue] Onset: 11-12-2011 11-12-2011 Episodic Other circulatory disease (1 source) Non-neoplastic nevus; Translations: [Nevus, non-neoplastic] Onset: 09-17-2006 09-17-2006 Episodic Other skin disorders (1 source) Disorder of skin pigmentation; Translations: [Disorder of pigmentation, unspecified] Onset: 09-17-2006 09-17-2006 Episodic Other skin disorders (1 source) Disorder of pigmentation; Translations: [Disorder of pigmentation, unspecified] Onset: 09-17-2006 09-17-2006 Episodic Other skin disorders (1 source) Actinic keratosis; Translations: [Actinic keratosis] Onset: 12-25-2008 03-06-2011 Episodic Other skin disorders (1 source) Seborrheic keratosis; Translations: [Other seborrheic keratosis] Onset: 12-25-2008 12-25-2008 Episodic Other skin disorders (2 sources) Disorder of sebaceous gland; Translations: [Follicular disorder, unspecified] Onset: 12-25-2008 12-25-2008 Episodic Other skin disorders (1 source) Inflamed seborrheic keratosis; Translations: [Inflamed seborrheic keratosis] Onset: 10-02-2010 03-06-2011 Episodic Other skin disorders (1 source) Solar lentigo; Translations: [Other melanin hyperpigmentation] Onset: 10-02-2010 03-06-2011 Episodic Other skin disorders (1 source) Asteatosis cutis; Translations: [Xerosis cutis] Onset: 10-02-2010 10-02-2010 Episodic Other skin disorders (1 source) Skin tag; Translations: [Other hypertrophic disorders of the skin] Onset: 11-12-2011 11-12-2011 Episodic Viral infection (1 source) Verruca vulgaris; Translations: [Viral wart, unspecified] Onset: 09-17-2006 09-17-2006 Episodic Encounters Encounter Date Encounter Type Care Provider Facility Start: 08-11-2021 End: 08-11-2021 Patient encounter procedure Kristofer Harvey MD Work Phone: [facility] Procedures Date Procedure Procedure Detail Performing Clinician Start: 08-11-2021 INFLUENZA SEASONAL QUADRIVALENT HIGH DOSE AGE 65+ Kristofer Harvey MD Work Phone: Plan of Treatment Date Care Activity Detail Author Start: 12-27-2010 SHINGRIX VACCINE (2 of 3) ANGLIN GRIX VACCINE (2 of 3) [facility] Start: 2007 ADVANCE DIRECTIVE DISCUSSION ADVANCE DIRECTIVE DISCUSSION [facility] Start: 2007 BONE DENSITY BONE DENSITY [facility] Start: 02-04-2006 Urine microalbumin profile DTAP,TDAP ,TD (1 - Tdap) [facility] Start: 1987 DIABETES SCREEN DIABETES SCREEN [facility] Start: 1960 HEPATITIS C SCREENING HEPATITIS C SC REENING [facility] Start: 1954 Adult depression scr eening assessment DEPRESSION SCREENING [facility] Immunizations Immunization Date Immunization Notes Care Provider Fa cility 08-11-2021 influenza, high-dose , quadrivalent vaccine (FLUZONE HIGH DOSE QUADRIVALENT) Kristofer Harvey MD Work Phone: [facility] 11-01-2010 zoster vaccine, live Davion blanquita Harvey MD Work Phone: [facility] 11-11-2009 novel influenza-H1N1 -09, all formulations Kristofer Harvey MD Work Phone: [facility] 10-03-2008 pneumococcal polysaccharide vaccine, 23 valent Kristofer Harvey MD Work Phone: [facility] 09-27-2006 influenza virus vacc ine, unspecified formulation Kristofer Harevy MD Work Phone: [facility] 02-03-2006 tetanus and diphther ia toxoids, not adsorbed, for adult use Kristofer Harevy MD Work Phone: [facility] Social History Date Type Detail Facility Start: 10-10-2015 Tobacco smoking stat us NHIS Former smoker [facility] End: 09-16-1983 History of tobacco use Current smoker [facility] Work Phone: Start: 10-10-2015 Tobacco use and exposure Never used [facility] Work Phone: Start: 11-12-2015 Alcohol intake Current non-dr shaft sinker of alcohol (finding) [facility] Start: 1940 Sex Assigned At Not on file [facility] History of Past illness Narrative 10-10-2015 Note Date & Type Note Facility documented as of this encounter (statuses as of 08/12/2021) [facility] Evaluation note Note Date & Type Note Facility documented in this encounter [facility] Additional Source Comments Source Comments (unrecognize d section and content) In the event this informatio n is protected by the Federal Confidentiality of Alcohol and Drug Abuse Patient Records regulations: The Federal rules restrict any use of the information to criminally investigate or prosecute any alcohol or drug abuse patient.[facility] FOR RECORDS PERTAINING TO PATIENTS WHO ARE OR HAVE BEEN ENROLLED IN A CHEMICAL DEPENDENCY/SUBSTANCEABUSE PROGRAM, SOME INFORMATION MAY BE OMITTED. This clinical summary was aggregated from multiple sources. Caution should be exercised in using it in the provision of clinical care. This summary normalizes information from multiple sources, and as a consequence, information in this document may materially change the coding, format and clinical context of patient data. In addition, data may be omitted in some cases. CLINICAL DECISIONS SHOULD BE BASED ON THE PRIMARY CLINICAL RECORDS. [facility] [employer] [facility]. provides no warranty or guarantee of the accuracy or completeness of information in this document.
== END | disposition home or self-care (01) ==
LOC: CT 14:40
PROVIDERS: PCP Family Medicine Geriatric Medicine; Referring Provider Family Medicine Geriatric Medicine; Visit Provider Family Medicine Geriatric Medicine
DX: S09.90XA Unspecified injury of head, initial encounter (principal); M54.2 Cervicalgia; M25.551 Pain in right hip
CPT/HCPCS: 70450

== ENCOUNTER → 2023-12-29 | Outpatient (CLI) | payer MEDICARE, SELFPAY ==
[2023-12-29 12:05] LABS: Absolute Lymphocyte Count 1.57 X10^3/uL (0.83-4.51); Absolute Neutrophil Count 3.3 X10^3/uL (2.0-7.7); Basophil# 0.04 X10^3/uL; Basophil% 0.7 % (0-1); Eosinophil# 0.09 X10^3/uL; Eosinophils% 1.6 % (0-5); Hematocrit 41.3 % (37-47); Hemoglobin 13.5 g/dL (12.0-15.0); Lymphocyte # 1.57 X10^3/ul (0.83-4.51); Lymphocyte % 28.6 % (19-41); Mean Corp Hgb Conc 32.7 g/dL (32-36); Mean Corpuscular Hgb 30.2 pg (27.0-32.0); Mean Corpuscular Volume 92.4 fL (81-99); Mean Platelet Vol. 10.3 fl (6.2-12.0); Monocyte# 0.51 X10^3/uL; Monocyte% 9.3 % (0-10); NRBC Flagged by Analyzer 0 % (0-5); Neutrophil # 3.26 X10^3/uL (2.7-7.7); Neutrophil % 59.6 % (47-70); Platelet Count 271 K/mm3 (150-450); RBC Distribution Width CV 11.9 % (11.6-14.6); RBC Distribution Width SD 40.2 fl (35.1-43.9); Red Blood Count 4.47 M/mm3 (4.2-5.4); White Blood Count 5.5 K/mm3 (4.4-11.0)
--- OUTSIDE RECORDS SUMMARY | 2023-12-29 12:20 | XMS RPT_ITS | CCD ---
Author Name Unknown Address [email or web address] [place] [address] Organization [facility] Care Team Providers Care Television Production Technician Name Role Phone Lela Love Primary Care Provider Allergies Allergy Classification Reported Allergen(s) Allergy Type Date of Onset Reaction(s) Facility (1 source) chlorproMAZINE Drug Allergy 03-15-2006 Anaphylaxis [facility] Work Phone: Medications Completed/Discontinued Medications Medication Drug Class(es) Dates Sig (Normalized) Sig (Original) [id number] 200 actuat albuterol 0.09 mg/actuat metered dose [...] 3) ANGLIN GRIX VACCINE (2 of 3) [facility] Start: 2007 ADVANCE DIRECTIVE DISCUSSION ADVANCE DIRECTIVE DISCUSSION [facility] Start: 2007 BONE DENSITY BONE DENSITY [facility] Start: 02-04-2006 Urine microalbumin profile DTAP,TDAP ,TD (1 - Tdap) [facility] Start: 1987 DIABETES SCREEN DIABETES SCREEN [facility] Start: 1960 HEPATITIS C SCREENING HEPATITIS C SC REENING [facility] Start: 1954 Adult depression scr eening assessment DEPRESSION SCREENING [facility] Immunizations Immunization Date Immunization Notes Care Provider Fa cility 08-11-2021 influenza, high-dose , quadrivalent vaccine (FLUZONE HIGH DOSE QUADRIVALENT) Kristofer Harvey MD Work Phone: [facility] 11-01-2010 zoster vaccine, live Davion blanquita Harvey MD Work Phone: [facility] 11-11-2009 novel influenza-H1N1 -09, all formulations Kristofer Harvey MD Work Phone: [facility] 10-03-2008 pneumococcal polysaccharide vaccine, 23 valent Kristofer Harvey MD Work Phone: [facility] 09-27-2006 influenza virus vacc ine, unspecified formulation Kristofer Harvey MD Work Phone: [facility] 02-03-2006 tetanus and diphther ia toxoids, not adsorbed, for adult use Kristofer Harvey MD Work Phone: [facility] Social History Date Type Detail Facility Start: 10-10-2015 Tobacco smoking stat us [facility] Former smoker [facility] End: 09-16-1983 History of tobacco use Current smoker [facility] Work Phone: Start: 10-10-2015 Tobacco use and exposure Never used [facility] Work Phone: Start: 11-12-2015 Alcohol intake Current non-dr coroner of alcohol (finding) [facility] Start: 1940 Sex Assigned At Not on file [facility] History of Past illness Narrative 10-10-2015 Note Date & Type Note Facility documented as of this encounter (statuses as of 08/12/2021) [facility] Evaluation note Note Date & Type Note Facility documented in this encounter [facility] Additional Source Comments Source Comments (unrecognize d section and content) In the event this informatio n is protected by the Federal Confidentiality of Alcohol and Drug Abuse Patient Records regulations: The Federal rules restrict any use of the information to criminally investigate or prosecute any alcohol or drug abuse patient.[facility] FOR RECORDS PERTAINING TO PATIENTS WHO [...] BE BASED ON THE PRIMARY CLINICAL RECORDS. [facility] [employer] [facility]. provides no warranty or guarantee of the accuracy or completeness of information in this document.
[2023-12-29 12:22] LABS: Vitamin D,25 Hydroxy 55.2 ng/mL
[2023-12-29 12:31] LABS: ALB/GLOB Ratio 1.1 RATIO (0.9-2.4); AST(SGOT) 22 U/L (15-37); Alanine Aminotransfer ALT/SGPT 28 U/L (13-56); Albumin, Serum 3.9 g/dL (3.2-5.0); Alkaline Phosphatase 59 U/L (45-117); Anion Gap 3 (5-15); BUN 12 mg/dL (7-18); BUN/Creat Ratio 15.1 RATIO (10-20); Calcium,Total 8.9 mg/dL (8.5-10.1); Chloride 108 mmol/L (98-107); Creatinine, Serum 0.79 mg/dL (0.55-1.02); EST Glomerular Filtration Rate 74 mL/min (>60); Est Glom Filt Rate - Afr Amer 89 mL/min (>60); Globulin 3.4 g/dL (2.2-4.2); Glucose 116 mg/dL (74-106); Potassium 4.1 mmol/L (3.5-5.1); Protein, Total 7.3 g/dL (6.4-8.2); Sodium Level 139 mmol/L (136-145); Thyroid Stim Hormone (TSH) 0.71 uIU/mL (0.358-3.74)
== END | disposition home or self-care (01) ==
LOC: POLAB3 11:10
PROVIDERS: PCP Family Medicine Geriatric Medicine; Visit Provider Family Medicine Geriatric Medicine
DX: E55.9 Vitamin D deficiency, unspecified (principal); R53.83 Other fatigue
CPT/HCPCS: 36415; 80053; 82306; 84443; 85025

== ENCOUNTER → 2024-01-01 | Outpatient (CLI) | payer MEDICARE, SELFPAY ==
--- OUTSIDE RECORDS SUMMARY | 2024-01-01 08:00 | XMS RPT_ITS | CCD ---
Author Name Unknown Address [address] [place] [address] Organization [facility] Care Team Providers Care Him Specialists Name Role Phone Lela Love Primary Care Provider [phone] Allergies Allergy Classification Reported Allergen(s) Allergy Type Date of Onset Reaction(s) Facility (1 source) chlorproMAZINE Drug Allergy 03-15-2006 Anaphylaxis [facility] Work Phone: Medications Completed/Discontinued Medications Medication Drug Class(es) Dates Sig (Normalized) Sig (Original) [id number] 200 actuat albuterol 0.09 mg/actuat metered dose [...] 3) ANGLIN GRIX VACCINE (2 of 3) [facility] Start: 2007 ADVANCE DIRECTIVE DISCUSSION ADVANCE DIRECTIVE DISCUSSION [facility] Start: 2007 BONE DENSITY BONE DENSITY [facility] Start: 02-04-2006 Urine microalbumin profile DTAP,TDAP ,TD (1 - Tdap) [facility] Start: 1987 DIABETES SCREEN DIABETES SCREEN [facility] Start: 1960 HEPATITIS C SCREENING HEPATITIS C SC REENING [facility] Start: 1954 Adult depression scr eening assessment DEPRESSION SCREENING [facility] Immunizations Immunization Date Immunization Notes Care Provider Fa cility 08-11-2021 influenza, high-dose , quadrivalent vaccine (FLUZONE HIGH DOSE QUADRIVALENT) Kristofer Harvey MD Work Phone: [facility] 11-01-2010 zoster vaccine, live Davion blanquita Harvey MD Work Phone: [facility] 11-11-2009 novel influenza-H1N1 -09, all formulations Kristofer Harvey MD Work Phone: [facility] 10-03-2008 pneumococcal polysaccharide vaccine, 23 valent Kristofer Harvey MD Work Phone: [facility] 09-27-2006 influenza virus vacc ine, unspecified formulation Kristofer Harvey MD Work Phone: [facility] 02-03-2006 tetanus and diphther ia toxoids, not adsorbed, for adult use Kristofer Harvey MD Work Phone: [facility] Social History Date Type Detail Facility Start: 10-10-2015 Tobacco smoking stat us [facility] Former smoker [facility] End: 09-16-1983 History of tobacco use Current smoker [facility] Work Phone: Start: 10-10-2015 Tobacco use and exposure Never used [facility] Work Phone: Start: 11-12-2015 Alcohol intake Current non-dr media consultant of alcohol (finding) [facility] Start: 1940 Sex Assigned At Not on file [facility] History of Past illness Narrative 10-10-2015 Note Date & Type Note Facility documented as of this encounter (statuses as of 08/12/2021) [facility] Evaluation note Note Date & Type Note Facility documented in this encounter [facility] Additional Source Comments Source Comments (unrecognize d section and content) In the event this informatio n is protected by the Federal Confidentiality of Alcohol and Drug Abuse Patient Records regulations: The Federal rules restrict any use of the information to criminally investigate or prosecute any alcohol or drug abuse patient.[facility] FOR RECORDS PERTAINING TO PATIENTS WHO ARE [...] BE BASED ON THE PRIMARY CLINICAL RECORDS. [facility] [employer] [facility]. provides no warranty or guarantee of the accuracy or completeness of information in this document.
--- NOTE | 2024-01-01 08:01 | MRI_ITS ---
EXAM: MR HEAD WITHOUT INTRAVENOUS CONTRAST CLINICAL INDICATION: CLOSED HEAD INJURY TECHNIQUE: Multiplanar and multisequence MR images of the brain were obtained without intravenous contrast. COMPARISON: CT head, 12/27/2023. FINDINGS: BRAIN AND EXTRA-AXIAL SPACES: There is no restricted diffusion in the brain parenchyma to indicate recent infarct or other pathology. There is no intracranial mass, mass effect, or shift of midline structures. Periventricular and subcortical T2 and T2 FLAIR hyperintensity is nonspecific although most commonly due to chronic microvascular ischemic changes in a patient of this age. 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 There is no intracranial hemorrhage. There is no pathologic extra-axial fluid. There is no pathologic mineralization. Posterior fossa structures are unremarkable. No hydrocephalus. Basal cisterns are patent. SELLA: No significant abnormality. Normal sella turcica, pituitary gland, infundibular stalk, optic chiasm and hypothalamus. AUDITORY SYSTEM: No significant abnormality. The internal auditory canals are patent. BONES/JOINTS: No significant abnormality. No discrete lytic or blastic abnormalities. SINUSES: Normal as visualized. Clear. MASTOID AIR CELLS: Normal as visualized. Clear. ORBITS: Bilateral ocular lens extraction presumptively for the treatment of cataracts. Otherwise, no acute orbital pathology. VASCULATURE: Normal as visualized. Normal flow voids in the major intracranial circulation. MRI/Brain without Contrast IMPRESSION: Chronic ischemic changes. No evidence of acute infarct or intracranial hemorrhage. Electronically Signed: Mayur Royal DO at 17:59 EST ,
== END | disposition home or self-care (01) ==
LOC: MRI 07:59
PROVIDERS: PCP Family Medicine Geriatric Medicine; Referring Provider Family Medicine Geriatric Medicine; Visit Provider Family Medicine Geriatric Medicine
DX: S09.90XA Unspecified injury of head, initial encounter (principal); X58.XXXA Exposure to other specified factors, initial encounter
CPT/HCPCS: 70551

== ENCOUNTER → 2024-07-04 | Outpatient (CLI) | payer MEDICARE, SELFPAY ==
[2024-07-04 11:42] LABS: Absolute Lymphocyte Count 1.82 X10^3/uL (0.83-4.51); Absolute Neutrophil Count 2.4 X10^3/uL (2.0-7.7); Basophil# 0.04 X10^3/uL; Basophil% 0.8 % (0-1); Eosinophils% 2.1 % (0-5); Hematocrit 39.7 % (37-47); Hemoglobin 13.4 g/dL (12.0-15.0); Lymphocyte # 1.82 X10^3/ul (0.83-4.51); Lymphocyte % 37.8 % (19-41); Mean Corp Hgb Conc 33.8 g/dL (32-36); Mean Corpuscular Hgb 31.2 pg (27.0-32.0); Mean Corpuscular Volume 92.3 fL (81-99); Mean Platelet Vol. 10.4 fl (6.2-12.0); Monocyte# 0.48 X10^3/uL; NRBC Flagged by Analyzer 0 % (0-5); Neutrophil # 2.37 X10^3/uL (2.7-7.7); Neutrophil % 49.1 % (47-70); Platelet Count 263 K/mm3 (150-450); RBC Distribution Width CV 12.1 % (11.6-14.6); RBC Distribution Width SD 40.9 fl (35.1-43.9); White Blood Count 4.8 K/mm3 (4.4-11.0)
[2024-07-04 12:58] LABS: AST(SGOT) 23 U/L (15-37); Alanine Aminotransfer ALT/SGPT 23 U/L (13-56); Albumin, Serum 3.5 g/dL (3.2-5.0); Alkaline Phosphatase 69 U/L (45-117); Anion Gap 6 (5-15); BUN 13 mg/dL (7-18); BUN/Creat Ratio 16.8 RATIO (10-20); Chloride 110 mmol/L (98-107); Cholesterol 223 mg/dL (200); Creatinine, Serum 0.77 mg/dL (0.55-1.02); EST Glomerular Filtration Rate 76 mL/min (>60); Est Glom Filt Rate - Afr Amer 92 mL/min (>60); Globulin 3.5 g/dL (2.2-4.2); Glucose 100 mg/dL (74-106); High Density Lipoprotein 76 mg/dL; Potassium 4.3 mmol/L (3.5-5.1); Sodium Level 141 mmol/L (136-145); Thyroid Stim Hormone (TSH) 0.82 uIU/mL (0.358-3.74); Triglycerides 139 mg/dL; Very Low Density Lipoprotein 28 mg/dL (5-40)
[2024-07-04 13:13] LABS: Vitamin D,25 Hydroxy 71.6 ng/mL
== END | disposition home or self-care (01) ==
PROVIDERS: PCP Family Medicine Geriatric Medicine; Visit Provider Family Medicine Geriatric Medicine
DX: I10 Essential (primary) hypertension (principal); E78.5 Hyperlipidemia, unspecified; E55.9 Vitamin D deficiency, unspecified
CPT/HCPCS: 36415; 80053; 80061; 82306; 84443; 85025

== ENCOUNTER → 2024-07-10 | Outpatient (CLI) | payer MEDICARE, SELFPAY ==
--- NOTE | 2024-07-10 15:16 | BI_ITS ---
MAMMOGRAPHY - BILATERAL SCREENING REASON FOR EXAM: Female, 83 years old. Routine annual screening examination. PERTINENT HISTORY: Sister with breast cancer. Aunt with breast cancer. TECHNIQUE: Digital bilateral breast rich (3D mammographic acquisition) in the CC and MLO projections. 2-D mediolateral oblique (MLO) and craniocaudad (CC) views of both breasts were obtained. CAD: Full Field Digital Mammography with Computer Added Detection was performed. COMPARISON: Comparison is made with prior study July 08, 2023 and July 02, 2022. FINDINGS: Breast Composition: There are scattered areas of fibroglandular density. There are no dominant masses or suspicious calcifications. No other significant abnormalities are identified. There has been no significant change since the prior study. BI/SCRN MAMM (CAD)W/RICH BILAT IMPRESSION: Stable bilateral screening mammogram. Yearly follow-up mammogram recommended. (A) ASSESSMENT CATEGORY: BIRADS Category 1: Negative. A letter regarding these results will be sent to the patient by the facility within 30 days. Approximately 10% of breast cancers are not detected by mammography. A normal mammogram should not delay biopsy of a clinically suspicious abnormality. [id number] Electronically Signed: Dustin Raza MD at 15:48 EDT ,
== END | disposition home or self-care (01) ==
LOC: OPBI 15:14
PROVIDERS: PCP Family Medicine Geriatric Medicine; Referring Provider Family Medicine Geriatric Medicine; Visit Provider Family Medicine Geriatric Medicine
DX: Z12.31 Encounter for screening mammogram for malignant neoplasm of breast (principal); Z80.3 Family history of malignant neoplasm of breast
CPT/HCPCS: 77063; 77067

== ENCOUNTER 2024-08-03 09:30 | Outpatient (RCR) | payer MEDICARE, SELFPAY ==
--- NOTE | 2024-07-06 10:03 | HP.PTEVAL_ITS ---
Patient's Visit Information Visit Information Visit Information: BETTE SALEH is a 83 year old F referred to Physical Therapy by Dr. Bolivar Collins MD with a diagnosis of RIGHT SHOULDER CUFF TENINITIS. Date of Evaluation: 07/06/24 Physical Therapist: Gregorio Tomlin, PT, Cert MDT, OCS Visit Plan Frequency: 2x /Week Duration: 4 Weeks Plan: PT INTERVENTIONS RTC/SCAPULAR STRENGTHENING ,ROM ,POSTURAL EX'S AND MODALITIES NEEDED Subjective Subjective: This 83 y/o female presents to physical therapy with right shoulder pain. Patient injury shoulder fell Nov 20[address] stairs. Patient seen DR 1 week later. Patient had x-rays and CATSCAN of head. DR Wednesday and was c/o shoulder pain recommended PT. Pain located anterior shoulder bicep pulling ache. Aggravating factors lifting ,raising are [place] ,reaching affect's housework chores and ADLS. Alleviating factors rest. Patient has some tingling. Pain pain affects sleeping initially . Patient main concern weakness/ Patient has h/o left shoulder surgery. Patient pain affects QOL and function with housework tasks. Patient goals to decrease pain. SOCIAL: VOCATION: retired Pain Right Shoulder: Pain Intensity (Out of 10): 3 Comment: raising Objective Objective: POSTURE: mild forward posture PALPATION:unremarkable NEURO: denies paresthesia/tingling AROM: shoulder flexion 100 degrees ,abduction 130 degrees ,ER 90 degrees ,IR T10 PROM: shoulder flexion /abduction 160 degrees MMT: ( peak force) infraspinatus 10.2 ,supraspinatus 9.2,subscapularis 15.2 , deltoid 10.1 Special Tests R Shoulder External Rotation Lag Test - RC Tear: Negative R Shoulder Supine Impingement Test - RC Tear: Negative R Shoulder Drop Sign - IS Test: Negative R Shoulder Empty Can - SS: Positive R Shoulder Belly Press - SupScap: Negative R Shoulder Neer - Impingement: Positive R Shoulder Hurtado Joni - Impingement: Positive R Shoulder Speeds Test - Labrum/Biceps: Negative R Shoulder O'Briens - SLAP/A-C: Negative R Shoulder Shrug Sign - OA/Adhesive Capsulitis: Negative Balance/Special Test Scores Quick DASH Score: 36.3625 Goals Goal 1:: Patient to be I with HEP Goal Time Frame: 4-6 Weeks Goal 2:: Patient to demonstrate 50% improvement with improved function with ADLS Goal Time Frame: 4-6 Weeks Goal 3:: Patient to improve AROM shoulder flexion/abduction 150 degrees to reach in cupboard Goal Time Frame: 4-6 Weeks Goal 4:: Patient to improve peak force RTC and deltoid by 5-10# to improve ADLS and housework Goal Time Frame: 4-6 Weeks Goal 5:: Patient to improve Quick dash by 5 points to improve QOL and function Goal Time Frame: 4-6 Weeks Rehabilitation Potential Physical Therapy Diagnosis: This patient has right shoulder pain with RTC involvement with weakness RTC with decrease ROM , impairs ADLS and housework tasks thus benefit from skilled PT Rehabilitation Potential: Good Anticipated Interventions Patient/Client Instruction: Educate patient on: Condition and Plan of Care For the Purpose of:: To decrease pain, To increase ROM, To improve muscle performance and motor function, To improve ability to perform ADL's, To increase tolerance to activity/condition/position, To improve ability of physical actions for home/community/work/leisure, To improve gait and locomotor functions, To improve health of tissue, To decrease soft tissue restriction, To increase flexibility/ROM and To prevent re-injury Therapeutic Exercise to Include: Strength training, Postural training, Flexibilty training and Active ROM Comment: RTC For the Purpose of:: To decrease pain, To increase ROM, To improve muscle performance and motor function, To improve ability to perform ADL's, To increase tolerance to activity/condition/position, To improve ability of physical actions for home/community/work/leisure, To improve health of tissue, To decrease soft tissue restriction, To increase flexibility/ROM and To prevent re-injury TENS: Yes IF ES: Yes Cryotherapy (ice pack, ice massage): Yes Thermo therapy (hot pack): Yes Ultrasound (thermal/non thermal): Yes For the Purpose of:: To decrease pain, To increase ROM, To improve health of tissue and To decrease soft tissue restriction Text: Thank you for the opportunity to evaluate your patient. For Medicare and Medicare HMO plans, please review the plan of care and approve it. It will need to be FAXED BACK to us at [phone] for Medicare purposes. For Medicare only, by signing this I certify the plan of care. Please let me know if there are questions or concerns regarding this plan of care. Physician Signature: Date:_
--- NOTE | 2024-08-03 09:55 | HP.PTDCSUM ---
Discharge Summary D/C summary: It has been my pleasure to treat BETTE SALEH referred by Dr. Bolivar Collins MD, with the diagnosis of RIGHT SHOULDER CUFF TENINITIS for a total of 9 visit(s). Discharge Date: Please see the following information for a summary of their discharge status. Subjective Subjective: Doing well Pain Right Shoulder: Pain Intensity (Out of 10): 0 Overall Improvement % Improvement: 75 Objective Objective/Function: POSTURE: mild forward posture PALPATION:unremarkable NEURO: denies paresthesia/tingling AROM: shoulder flexion 160 degrees ,abduction 155 degrees ,ER 90 degrees ,IR T10 PROM: shoulder flexion /abduction 160 degrees MMT: ( peak force) infraspinatus 17.2 ,supraspinatus 9.2,subscapularis 15.2 , deltoid 10.1 Goals Goal 1:: Patient to be I with HEP Goal 2:: Patient to demonstrate 50% improvement with improved function with ADLS Goal 3:: Patient to improve AROM shoulder flexion/abduction 150 degrees to reach in cupboard Goal 4:: Patient to improve peak force RTC and deltoid by 5-10# to improve ADLS and housework Goal 5:: Patient to improve Quick dash by 5 points to improve QOL and function Plan Plan: D/C D/C Information d/c sentence: If there are questions or concerns regarding this patient's physical therapy, please feel free to call me at [phone]. Thank you for the referral of this patient. Sincerely, Gregorio Tomlin PT, Cert MDT, OCS Balance/Gait/Functional tests Balance/Special Test Scores Quick DASH Score: 6.8175 Improvement % Improvement: 75
== END 2024-08-03 16:02 | disposition home or self-care (01) ==
LOC: PT 09:30
PROVIDERS: PCP Family Medicine Geriatric Medicine; Referring Provider Family Medicine Geriatric Medicine; Visit Provider Family Medicine Geriatric Medicine
DX: M75.81 Other shoulder lesions, right shoulder (principal)
CPT/HCPCS: 97110; 97162

== ENCOUNTER → 2024-09-21 | Outpatient (CLI) | payer MEDICARE, SELFPAY ==
--- NOTE | 2024-09-21 14:40 | RAD_ITS ---
STUDY: X-RAY - RIGHT SHOULDER REASON FOR EXAM: Female, 83 years old. RIGHT SHOULDER PAIN TECHNIQUE: 4 views of the right shoulder. COMPARISON: None. FINDINGS: Normal glenohumeral articulation. There is mild acromioclavicular arthrosis. Normal acromion. Normal humeral head and visualized proximal humerus. The soft tissue structures are unremarkable. There is no demonstrated fracture. Normal visualized pulmonary apex. RAD/Shoulder min 2 Views IMPRESSION: Mild acromioclavicular arthrosis. No demonstrated fracture. Electronically Signed: Fernando Jeronimo MD at 15:49 EDT ,
== END | disposition home or self-care (01) ==
LOC: RAD 14:37
PROVIDERS: PCP Family Medicine Geriatric Medicine; Referring Provider Family Medicine Geriatric Medicine; Visit Provider Family Medicine Geriatric Medicine
DX: M75.101 Unspecified rotator cuff tear or rupture of right shoulder, not specified as traumatic (principal); M75.81 Other shoulder lesions, right shoulder
CPT/HCPCS: 73030

== ENCOUNTER → 2024-10-16 | Outpatient (CLI) | payer MEDICARE, SELFPAY ==
--- NOTE | 2024-10-16 09:30 | MRI_ITS ---
STUDY: MRI RIGHT SHOULDER REASON FOR EXAM: Female, 84 years old. PAIN,ROTATOR CUFF TENDINITIS TECHNIQUE: Standardized fat and water weighted pulse sequences were obtained in all 3 orthogonal planes. COMPARISON: Right shoulder x-ray dated September 21, 2024 FINDINGS: A large full-thickness tear supraspinatus tendon is present with retraction of the patellar component from the greater tuberosity of 1.03 cm. The fibers of the supraspinatus tendon remaining intact and the greater tuberosity insertion site demonstrated moderate tendinosis. A moderate-sized glenohumeral joint effusion is present with communication to the subacromial/subdeltoid bursal regions. Normal infraspinatus tendon. Normal subscapularis tendon. Normal teres minor tendon. Normal supraspinatus muscle. Normal infraspinatus muscle. Normal subscapularis muscle. Normal teres minor muscle. Normal glenohumeral articulation. Normal humeral head and visualized proximal humerus. Normal biceps labral complex. Normal intracapsular long biceps tendon. Normal labrum. Normal capsulo- ligamentous complex. Normal rotator interval. There is mild osteoarthritis of the acromioclavicular articulation. There is a Type II morphology (curved), with a neutral orientation. Normal visualized coracohumeral and coracoacromial ligaments. Normal quadrilateral space. Normal axillary space. Normal deltoid muscle. Normal trapezius muscle. MRI/Upper Ext Joint Only(Routine) IMPRESSION: 1. A large full-thickness tear supraspinatus tendon is present with retraction of the patellar component from the greater tuberosity of 1.03 cm. The fibers of the supraspinatus tendon remaining intact and the greater tuberosity insertion site demonstrated moderate tendinosis. A moderate-sized glenohumeral joint effusion is present with communication to the subacromial/subdeltoid bursal regions. Electronically Signed: Eliceo Bill MD at 14:19 EST ,
== END | disposition home or self-care (01) ==
PROVIDERS: PCP Family Medicine Geriatric Medicine; Referring Provider Family Medicine Geriatric Medicine; Visit Provider Family Medicine Geriatric Medicine
DX: M75.81 Other shoulder lesions, right shoulder (principal); M75.101 Unspecified rotator cuff tear or rupture of right shoulder, not specified as traumatic
CPT/HCPCS: 73221

== ENCOUNTER → 2025-01-02 | Outpatient (CLI) | payer MEDICARE, SELFPAY ==
[2025-01-02 11:40] LABS: Absolute Lymphocyte Count 1.44 X10^3/uL (0.83-4.51); Absolute Neutrophil Count 2.5 X10^3/uL (2.0-7.7); Basophil# 0.03 X10^3/uL; Basophil% 0.7 % (0-1); Eosinophil# 0.08 X10^3/uL; Eosinophils% 1.8 % (0-5); Hematocrit 41.7 % (37-47); Hemoglobin 14.2 g/dL (12.0-15.0); Lymphocyte # 1.44 X10^3/ul (0.83-4.51); Lymphocyte % 32.6 % (19-41); Mean Corp Hgb Conc 34.1 g/dL (32-36); Mean Corpuscular Hgb 30.9 pg (27.0-32.0); Mean Corpuscular Volume 90.7 fL (81-99); Mean Platelet Vol. 10.1 fl (6.2-12.0); NRBC Flagged by Analyzer 0 % (0-5); Neutrophil # 2.45 X10^3/uL (2.7-7.7); Neutrophil % 55.4 % (47-70); Platelet Count 277 K/mm3 (150-450); RBC Distribution Width CV 11.9 % (11.6-14.6); RBC Distribution Width SD 39.2 fl (35.1-43.9); White Blood Count 4.4 K/mm3 (4.4-11.0)
[2025-01-02 12:44] LABS: AST(SGOT) 35 U/L (15-37); Alanine Aminotransfer ALT/SGPT 58 U/L (13-56); Albumin, Serum 3.7 g/dL (3.2-5.0); Alkaline Phosphatase 83 U/L (45-117); Anion Gap 7 (5-15); BUN 12 mg/dL (7-18); Calcium,Total 8.9 mg/dL (8.5-10.1); Chloride 108 mmol/L (98-107); Cholesterol 208 mg/dL (200); EST Glomerular Filtration Rate 73 mL/min (>60); Est Glom Filt Rate - Afr Amer 89 mL/min (>60); Globulin 3.6 g/dL (2.2-4.2); Glucose 102 mg/dL (74-106); High Density Lipoprotein 65 mg/dL; Protein, Total 7.3 g/dL (6.4-8.2); Sodium Level 139 mmol/L (136-145); Triglycerides 91 mg/dL; Very Low Density Lipoprotein 18 mg/dL (5-40)
[2025-01-02 12:57] LABS: Vitamin D,25 Hydroxy 50.6 ng/mL
== END | disposition home or self-care (01) ==
PROVIDERS: PCP Family Medicine Geriatric Medicine; Visit Provider Family Medicine Geriatric Medicine
DX: I10 Essential (primary) hypertension (principal); E78.5 Hyperlipidemia, unspecified; E55.9 Vitamin D deficiency, unspecified
CPT/HCPCS: 36415; 80053; 80061; 82306; 84443; 85025

== ENCOUNTER 2025-04-14 12:21 | Emergency (ER) | payer MEDICARE, SELFPAY ==
[2025-04-14 12:22] VITALS: BP 174/81; PULSE 58; RESP 16; TEMP 37; O2SAT 95; BMI 27.8
--- NOTE | 2025-04-14 12:55 | CT_ITS ---
EXAM: CT Cervical Spine Without Intravenous Contrast CLINICAL INDICATION: TRAUMA TECHNIQUE: Axial computed tomography images of the cervical spine without intravenous contrast. This CT exam was performed using one or more of the following dose reduction techniques: automated exposure control, adjustment of the mA and/or kV according to patient size, and/or use of iterative reconstruction technique. COMPARISON: No relevant prior studies available. FINDINGS: VERTEBRAE: Mild reversal cervical spine lordosis. Degenerative facet arthropathy throughout the cervical spine. No acute fracture. DISCS/SPINAL CANAL/NEURAL FORAMINA: Degenerative disc disease lower cervical spine. SOFT TISSUES: Unremarkable. CT/Spine Cervical without Contras IMPRESSION: 1. No acute fracture. 2. Degenerative changes cervical spine as described. Reading Location: [id number]
--- NOTE | 2025-04-14 12:55 | CT_ITS ---
EXAM: CT Head Without Intravenous Contrast CLINICAL INDICATION: TRAUMA TECHNIQUE: Axial computed tomography images of the head/brain without intravenous contrast. This CT exam was performed using one or more of the following dose reduction techniques: automated exposure control, adjustment of the mA and/or kV according to patient size, and/or use of iterative reconstruction technique. COMPARISON: CT Head dated 01/01/2024 FINDINGS: BRAIN AND EXTRA-AXIAL SPACES: Areas of decreased attenuation in the deep cerebral white matter are consistent with small vessel ischemic/degenerative changes. The cerebral and cerebellar sulci are prominent consistent with brain atrophy. No acute intracranial hemorrhage, midline shift or mass effect. If symptoms persist, further evaluation with MRI is recommended. BONES/JOINTS: Unremarkable. No acute fracture. SOFT TISSUES: Unremarkable. SINUSES: Unremarkable as visualized. No acute sinusitis. MASTOID AIR CELLS: Unremarkable as visualized. No mastoid effusion. CT/Brain/Head without Contrast IMPRESSION: 1. Small vessel ischemic/degenerative changes. 2. Generalized brain atrophy. 3. No acute intracranial hemorrhage, midline shift or mass effect. If symptoms persist, further evaluation with MRI is recommended. 4. No significant change from the prior exam. Reading Location: [id number]
--- NOTE | 2025-04-14 12:55 | CT_ITS ---
EXAM: CT Maxillofacial Without Intravenous Contrast CLINICAL INDICATION: TRAUMA TECHNIQUE: Axial computed tomography images of the face without intravenous contrast. This CT exam was performed using one or more of the following dose reduction techniques: automated exposure control, adjustment of the mA and/or kV according to patient size, and/or use of iterative reconstruction technique. COMPARISON: No relevant prior studies available. FINDINGS: BONES/JOINTS: See below. SOFT TISSUES: Cortical irregularity and depressed tip of the nasal ridge with overlying soft tissue swelling concerning for mildly depressed compression fracture. ORBITS: Unremarkable. SINUSES: Unremarkable. No air-fluid levels. CT/Sinus/Facial Bone IMPRESSION: Cortical irregularity and depressed tip of the nasal ridge with overlying soft tissue swelling concerning for mildly depressed compression fracture. Reading Location: [id number]
--- NOTE | 2025-04-14 12:56 | EX.ED.GENINJ ---
HPI History of Present Illness Chief Complaint: Head Injury Narrative Narrative: 84-year-old female past medical history of atrial fibrillation and hypertension, not on blood thinners, presents with her daughter because of fall with injury to her nose and forehead. She states that this morning around 10 AM, approximately 3 hours ago, she was outside picking up sticks. She was wearing her boots, and she tripped up and fell forward. She was wearing sunglasses and her glasses abraded her nose. She feels that her tetanus is immunization is current, within the last 10 years. She complains of pain in her nose without bleeding, mainly left forehead pain, and neck stiffness at the base of her skull bilaterally. She denies other injuries. No loss of consciousness. Her daughter was more concerned because patient fell about a year ago and did not tell anyone for weeks. [facility] Medical History Paroxysmal atrial fibrillation Eczema Vitamin D deficiency Hyperlipidemia Depression Allergic rhinitis Asthma Home Medications ?Medication ?Instructions ?Recorded ?Last Taken ?Type calcium 600 mg (as 1 tab PO DAILY 07/27/23 Unknown History carbonate)-vitamin D3 5 mcg (200 unit) tablet (Calcium 600 + D(3)) cetirizine 10 mg tablet (Zyrtec) 5 mg PO DAILY PRN 07/27/23 Unknown History cholecalciferol (vitamin D3) 25 25 mcg PO DAILY 07/27/23 Unknown History mcg (1,000 unit) tablet guaifenesin 600 mg tablet, 600 mg PO BID 07/27/23 Unknown History extended release 12 hr (Mucinex) multivitamin with minerals 1 cap PO DAILY 07/27/23 Unknown History omega 7-xzs-wro-fish oil 1,200 mg cap PO 07/27/23 Unknown History (144 mg-216 mg) capsule (Fish Oil) psyllium [Metamucil] PO 07/27/23 Unknown History turmeric 400 mg capsule 400 mg PO DAILY 07/27/23 Unknown History cranberry fruit 400 mg capsule 400 mg PO BID 08/25/23 Unknown History metoprolol succinate 50 mg 25 mg (1/2 x 50 mg) PO DAILY #90 08/30/24 Unknown Rx tablet,extended release 24 hr tabs (Toprol XL) amlodipine 5 mg tablet 5 mg PO DAILY #180 tabs 11/06/24 Unknown Rx Allergy/AdvReac Type Severity Reaction Status Date / Time chlorpromazine (From Allergy Unknown Unknown Verified 04/14/25 12:22 Thorazine) Family History Mother Dementia Colon cancer Anemia Father CVA (cerebral vascular accident) Grandmother Diabetes Surgical History History of bilateral cataract extraction History of hysterectomy History of tonsillectomy Social History Smoking Status: Former smoker alcohol intake: never substance use type: does not use caffeine: Yes Type: coffee Number of servings: 2 ROS ROS ED ROS Narrative Review of systems positive for abrasion to nose with nasal pain, left forehead pain, and neck stiffness at base of skull bilaterally. Denies any paresthesias of arms or legs. No reported loss of consciousness. Denies other injury. EXAM Physical Exam Narrative Exam Narrative: GCS 15. ABCs are intact. Mild tenderness palpation left forehead without overt hematoma. No evidence of bleeding intranasally. Positive linear abrasion, superficial to nose approximately 1.5 cm without active bleeding. No nasal septal hematoma. No crepitance of face. PERRL, EOMI. Neck soft and supple without vertebral point tenderness or bony step-off. Mild tenderness palpation paraspinal musculature at base of skull bilaterally. Cardiovascular examination reveals a bradycardia. Lungs are clear to auscultation bilaterally. Abdomen soft and nontender without guarding or rebound. Able to raise arms above head without difficulty, neurological examination nonfocal and nonlateralizing. Awake, alert, oriented x 3. Const Vital Signs: 04/14/25 12:22 04/14/25 12:26 Temperature 98.6 F Temperature Source Temporal Pulse Rate 58 L Respiratory Rate 16 Respiratory Effort Normal Non-Labored Respiratory Depth Normal Respiratory Pattern Normal Blood Pressure 174/81 H Blood Pressure Mean 112 Pulse Ox 95 Oxygen Delivery Method Room Air MDM MDM MDM Narrative Medical decision making narrative: Differential diagnosis includes but not limited to nasal fracture versus contusion versus closed head injury versus skull fracture with intracranial hemorrhage versus neck cervical strain of paraspinal muscles versus fracture. CTs were obtained of the face, brain, and cervical spine. I reviewed the radiology report of the CT of the brain and there is no evidence of acute intracranial hemorrhage or skull fracture. CT of the cervical spine radiology report reviewed and there is no acute fracture, there are degenerative changes noted. On review of the radiology report of the CT facial bones there is cortical irregularity and depressed tip of the nasal ridge with concern for a depressed compression fracture. There is no nasal septal hematoma on her examination. At this point in time, she declined any oral analgesics here in the emergency department, and she declined any stronger narcotic pain medication for analgesia, preferring to take [id number] medications as needed. Given her nasal bone fracture, she was referred to plastic surgery, Dr. Starkey for follow-up within a week to 10 days. She will continue ice and cmsf-gur-owgoiry medications. I feel she can be discharged to follow-up. Return instructions reviewed. Disposition is discharged home in stable condition. History & Record Review Discussion w/independent historian: Patient and Family Radiography Diagnostic Testing: Clinical Impression(s) from Imaging Studies Brain CT 04/14/25 12:55 IMPRESSION: 1. Small vessel ischemic/degenerative changes. 2. Generalized brain atrophy. 3. No acute intracranial hemorrhage, midline shift or mass effect. If symptoms persist, further evaluation with MRI is recommended. 4. No significant change from the prior exam. Reading Location: [facility] Cervical Spine CT 04/14/25 12:55 IMPRESSION: 1. No acute fracture. 2. Degenerative changes cervical spine as described. Reading Location: [facility] Facial/Sinus 04/14/25 12:55 IMPRESSION: Cortical irregularity and depressed tip of the nasal ridge with overlying soft tissue swelling concerning for mildly depressed compression fracture. Reading Location: [facility] Discharge Plan Triage Chief Complaint: Head Injury ED Provider: Terrance Gardner Dx/Rx/DC Orders Clinical Impression: Fall, Nasal bone fracture, Abrasion Instructions: ED Nose Fracture, with X-Ray, ED Head Injury (Adult), ED Neck Sprain or Strain Prescriptions: No Action guaifenesin [Mucinex] 600 mg tablet extended release 12hr 600 mg PO BID turmeric 400 mg capsule 400 mg PO DAILY calcium carbonate-vitamin D3 [Calcium 600 + D(3)] 600 mg-5 mcg (200 unit) tablet 1 tab PO DAILY cholecalciferol (vitamin D3) 25 mcg (1,000 unit) tablet 25 mcg PO DAILY psyllium [Metamucil] PO omega 0-guc-wdo-fish oil [Fish Oil] 1,200 (144-216) mg capsule PO multivitamin with minerals Capsule 1 cap PO DAILY cetirizine [Zyrtec] 10 mg tablet 5 mg PO DAILY PRN cranberry fruit 400 mg capsule 400 mg PO BID Rx Instructions: administer with meals metoprolol succinate [Toprol XL] 50 mg tablet extended release 24 hr 25 mg PO DAILY Qty: 90 3RF amlodipine 5 mg tablet 5 mg PO DAILY Qty: 180 3RF Primary Care Provider: Bolivar Collins Chi Referrals: Pablo Starkey MD [Med Staff - Active Staff] - 1 Week Bolivar Collins Chi, MD [Primary Care Provider] - Activity Restrictions/Additional Instructions: Continue ice to your nose 10 to 15 minutes a few times a day. Follow-up with Dr. Starkey with plastic surgery in the next week, return to the emergency department with new or worsening symptoms. Print Language: Welsh Disposition Disposition: Home, Self Care
[2025-04-14 14:16] VITALS: BP 161/73; PULSE 78; RESP 16; TEMP 36.8; O2SAT 99
== END 2025-04-14 14:20 | disposition home or self-care (01) ==
PROVIDERS: Emergency Provider Emergency Medicine; PCP Family Medicine Geriatric Medicine; Visit Provider Emergency Medicine
DX: S02.2XXA Fracture of nasal bones, initial encounter for closed fracture (principal); I48.0 Paroxysmal atrial fibrillation; R51.9 Headache, unspecified; S00.31XA Abrasion of nose, initial encounter; I10 Essential (primary) hypertension; E78.5 Hyperlipidemia, unspecified; Z87.891 Personal history of nicotine dependence; W01.0XXA Fall on same level from slipping, tripping and stumbling without subsequent striking against object, initial encounter; J45.909 Unspecified asthma, uncomplicated
CPT/HCPCS: 70450; 70486; 72125; 99282

== ENCOUNTER → 2025-07-05 | Outpatient (CLI) | payer MEDICARE, SELFPAY ==
[2025-07-05 11:16] LABS: Hematocrit 40.6 % (37-47); Hemoglobin 14.2 g/dL (12.0-15.0); Immature Granulocytes Count 0.010 X10^3/uL (0.0-0.0); Mean Corp Hgb Conc 35.0 g/dL (32-36); Mean Corpuscular Volume 90.6 fL (81-99); Mean Platelet Vol. 10.2 fl (6.2-12.0); NRBC Flagged by Analyzer 0 % (0-5); Platelet Count 243 K/mm3 (150-450); RBC Distribution Width CV 11.9 % (11.6-14.6); RBC Distribution Width SD 39.5 fl (35.1-43.9); Red Blood Count 4.48 M/mm3 (4.2-5.4); White Blood Count 4.0 K/mm3 (4.4-11.0)
[2025-07-05 12:28] LABS: AST(SGOT) 30 U/L (<=31); Alanine Aminotransfer ALT/SGPT 25 U/L (<=34); Albumin, Serum 4.3 g/dL (3.4-4.8); Alkaline Phosphatase 65 U/L (35-104); Anion Gap 12 (5-15); BUN 13 mg/dL (4-19); BUN/Creat Ratio 18.4 RATIO (10-20); Calcium,Total 9.5 mg/dL (7.6-11.0); Carbon Dioxide 21.1 mmol/L (21.0-32.0); Chloride 106 mmol/L (98-108); Cholesterol 235 mg/dL (<=200); Globulin 2.6 g/dL (2.2-4.2); Glucose 107 mg/dL (70-99); Low Density Lipoprotein Calc. 132 mg/dL; Potassium 4.1 mmol/L (3.3-5.1); Triglycerides 94 mg/dL; Very Low Density Lipoprotein 19 mg/dL (5-40); Vitamin D,25 Hydroxy 65.8 ng/mL (30-100); cholesterol:hdl ratio screen 2.78
[2025-07-05 18:58] LABS: Xtra Tube Kwok EXTRA TUBE
== END | disposition home or self-care (01) ==
LOC: POLAB3 10:56
PROVIDERS: PCP Family Medicine Geriatric Medicine; Visit Provider Family Medicine Geriatric Medicine
DX: I10 Essential (primary) hypertension (principal); E55.9 Vitamin D deficiency, unspecified; E78.5 Hyperlipidemia, unspecified
CPT/HCPCS: 36415; 80053; 80061; 82306; 84443; 85025

== ENCOUNTER → 2025-07-16 | Outpatient (CLI) | payer MEDICARE, SELFPAY ==
--- NOTE | 2025-07-16 08:08 | BI_ITS ---
EXAM: SCRN MAMM (CAD)W/RICH BILAT DATE: 07/16/2025 CLINICAL HISTORY: F, Age 84 y/o , SCREENING TECHNIQUE: SCRN MAMM (CAD)W/RICH BILAT COMPARISON: Prior exam(s) dated 07/10/2024, 07/08/2023 and 07/02/2022. FINDINGS: TISSUE DENSITY: There are scattered areas of fibroglandular density. Bilateral Breast Mammographic Findings: There are no suspicious masses, suspicious clustered microcalcifications, architectural distortion or secondary signs of malignancy identified in either breast. Benign round calcifications are seen in both breasts. Benign-appearing vascular calcifications are seen in both breasts. BI/SCRN MAMM (CAD)W/RICH BILAT IMPRESSION: Benign screening mammogram. OVERALL FINAL ASSESSMENT BI-RADS 2: BENIGN RECOMMENDATION: Routine annual follow-up in 1 Year A letter with findings and recommendations will be mailed to the patient. Reading Location: [id number]
--- OUTSIDE RECORDS SUMMARY | 2025-07-16 11:04 | XMS RPT_ITS | CCD ---
Author Organization [facility] CliniSywv Care Team Providers Care Editing Clerk Name Role Phone Lela Love Primary Care Provider Roya, Dr. Bolivar Shore Primary Care Provider Roya, Dr. Bolivar Shore Referring Provider 1([facility])[phone] Genaro Dobson Attending Provider 1([facility])[phone] Jon AIRPLANE PILOT CHIEF, AIRPLANE PILOT CHIEF-C Viktoria Attending Provider Roya, Dr. Bolivar Shore Primary Care Provider 1([facility])[phone] Roya, Dr. Bolivar Shore Referring Provider 1([facility])[phone] Genaro Dobson Attending Provider 1([facility])[phone] Jon HUI, EZ-C Viktoria Attending Provider Roya, Dr. Bolivar Shore Primary Care Provider Dr. Genaro Dobson Attending Provider 1([facility])[phone] Roya, Dr. Bolivar Shore Primary Care Provider Pablo Starkey Attending Unavailable Roya, Bolivar Chi Primary Care Unavailable Terrance Gardner Referring Unavailable Roya, Bolivar Chi Referring Unavailable Roya, Bolivar Chi Attending Unavailable Roya, Bolivar Chi Primary Care Unavailable Roya, Bolivar Chi Referring Unavailable Roya, Bolivar Chi Primary Care Unavailable Roya, Bolivar Chi Attending Unavailable Roya, Bolivar Chi Attending Unavailable Roya, Bolivar Chi Primary Care Unavailable Roya, Bolivar Chi Referring Unavailable Roya, Bolivar Chi Attending Unavailable Roya, Bolivar Chi Primary Care Unavailable Roya, Bolivar Chi Attending Unavailable Roya, Bolivar Chi Primary Care Unavailable Roya, Bolivar Chi Referring Unavailable Roya, Bolivar Chi Attending Unavailable Roya, Bolivar Chi Primary Care Unavailable Roya, Bolivar Chi Primary Care Unavailable Terrance Gardner Attending Unavailable Roya, Bolivar Chi Referring Unavailable Roya, Bolivar Chi Primary Care Unavailable Viktoria Webb NP Attending Unavailable Roya, Bolivar Chi Referring Unavailable Bolivar Collins Chi Primary Care Unavailable Viktoria Webb NP Attending Unavailable Allergies Allergy Classification Reported Allergen(s) Allergy Type Date of Onset Reaction(s) Facility (5 sources) chlorproMAZINE Drug Allergy 6 Anaphylaxis [facility] Work Phone: (1 source) chlorproMAZINE Drug Allergy [facility] Repository Medications Current Medications Medication Drug Class(es) Dates Sig (Normalized) Sig (Original) amLODIPine 5 mg oral tablet (7 sources) Dihydropyridine Calcium Channel Deb Start: 09-24-2023 take 5 mg by mouth twice daily Amlodipine Active 5 MG PO TWICE A DAY September 24, 2023 2:41pm Start: 09-08-2023 End: 09-24-2023 take 5 mg by mouth once daily Amlodipine Discontinued 5 MG PO DAILY September 07, 2023 11:00pm September 24, 2023 2:43pm calcium carbonate 1500 mg / cholecalciferol 200 unt oral tablet (4 sources) Vitamin D Start: 07-27-2023 take 1 tablet by mouth once daily Calcium Carbonate-Vitamin D3 (Calcium 600 + D(3)) 600 mg-5 mcg (200 unit) tablet Active 1 TABLET PO DAILY July 26, 2023 11:00pm cetirizine hydrochloride 10 mg oral tablet (4 sources) Histamine-1 Receptor Antagonist Start: 07-27-2023 take 5 mg by mouth once daily Cetirizine (Zyrtec) 10 mg tablet Active 5 MG PO DAILY July 26, 2023 11:00pm cholecalciferol 0.025 mg oral tablet (5 sources) Vitamin D Start: 07-27-2023 take 25 ug by mouth once daily Cholecalciferol (Vitamin D3) Active 25 MCG PO DAILY July 26, 2023 11:00pm take 1 tablet by mouth once ariadna y cholecalciferol, vitamin D3, (VITAMIN D-3) 400 unit ORAL Cap Take one(1) tablet daily. 0 Active Comment on above: Take one(1) tablet d aily. Cranberry (5 sources) Non-Standardized Food Allergenic Extract, Non-Standardized Plant Allergenic Extract Start: 08-25-2023 take 400 mg by mouth twice daily at mealtime Cranberry Active 400 MG PO TWICE A DAY August 24, 2023 11:00pm administer with meals Start: 08-25-2023 take 400 mg by mouth twice daily at mealtime Cranberry Active 400 MG PO TWICE A DAY August 25, 2023 12:00am administer with meals CRANBERRY EXTRAC T (CRANBERRY CONCENTRATE ORAL) Take by mouth once daily. 0 Active Comment on above: Take by mouth once d aily. 12 hr guaiFENesin 600 mg extended release oral tablet (5 sources) Start: 07-27-2023 take 1 tablet by mouth twice daily, then take 1 tablet by mouth every twelve hours Guaifenesin (Mucinex) 600 mg tablet extended release 12hr Active 600 MG PO TWICE A DAY July 26, 2023 11:00pm Start: 09-16-2006 MUCINEX 600 MG TAB Take one(1) tablet two(2) times daily. 0 09/16/2006 Active Comment on above: Take one(1) tablet t wo(2) times daily. 24 hr metoprolol succinate 50 mg extended release oral tablet (4 sources) beta-Adrenergic Deb Start: 3 take 1 tablet by mouth once daily Metoprolol Succinate (Toprol Xl) 50 mg tablet extended release 24 hr Active 50 MG PO DAILY 60 August 24, 2023 11:00pm Multivitamin With Minerals (4 sources) Start: 3 take 1 capsule by mouth once daily Multivitamin With Minerals Active 1 CAP PO DAILY July 26, 2023 11:00pm Start: 07-27-[address] [facility] once daily Multivitamin With Minerals Active 1 CAP PO DAILY July 27, 2023 12:00am [place] 6-Mpw-Mcu-Fish Oil (Fi sh Oil) 1,200 (144-216) mg capsule (4 sources) Start: 07-27-2023 [place] 3-Dha-Ep a-Fish Oil (Fish Oil) 1,200 (144-216) mg capsule Active CAP PO July 26, 2023 11:00pm Start: 07-27-2023 [place] 3-Dha-Ep a-Fish Oil (Fish Oil) 1,200 (144-216) mg capsule Active CAP PO July 27, 2023 12:00am Psyllium (5 sources) Start: 07-27-2023 psyllium (Luther mucil) Active PO July 26, 2023 11:00pm Start: 07-27-2023 psyllium (Luther mucil) Active PO July 27, 2023 12:00am Psyllium Seed-De xtrose (FIBER) powder Take by mouth once daily. 0 Active Comment on above: Take by mouth once d aily. Turmeric extract (4 sources) Start: 07-27-2023 take 400 mg by mouth once daily Turmeric Active 400 MG PO DAILY July 26, 2023 11:00pm Start: 07-27-2023 take 400 mg by mouth once ariadna y Turmeric Active 400 MG PO DAILY July 27, 2023 12:00am Completed/Discontinued Medications Medication Drug Class(es) Dates Sig (Normalized) Sig (Original) [id number] 200 actuat albuterol 0.09 mg/actuat metered dose inhaler (1 source) beta2-Adrenergic Agonist albuterol HFA (PROAIR HFA) 90 mcg/actuation inhaler Inhale 2 Puffs as instructed as needed. 0 Active Comment on above: Inhale 2 Puffs as in structed as needed. Aspirin (1 source) Platelet Aggregation Inhibitor, Nonsteroidal Anti-inflammatory Drug take 1 tablet by mouth once daily BABY ASPIRIN ORAL Take by mouth. Take one(1) tablet daily. 0 Active Comment on above: Take by mouth. Take one(1) tablet daily. Calcium Carbonate / vitamin D3 (1 source) take 1200 mg by mouth once daily CALCIUM CARBONATE/VITAMIN D3 (CALCIUM + VITAMIN D ORAL) Take 1200 mg daily. 0 Active Comment on above: Take 1200 mg daily. Docusate (1 source) DOCUSATE CALCIUM (STOOL SOFTENER ORAL) Take by mouth twice daily. 0 Active Comment on above: Take by mouth twice daily. ezetimibe / Simvastatin (1 source) HMG-CoA Reductase Inhibitor, Dietary Cholesterol Absorption Inhibitor ezetimibe 10 mg Tab 10 mg, simvastatin 10 mg Tab 10 mg Take one(1) tablet daily. 0 Active Comment on above: Take one(1) tablet d aily. montelukast 10 mg oral tablet (1 source) Leukotriene Receptor Antagonist Start: 03-15-2006 SINGULAIR 10 MG TAB Take one(1) tablet daily. 0 03/15/2006 Active Comment on above: Take one(1) tablet d aily. multivitamin ORAL tablet (1 source) take 1 tablet by mouth once daily multivitamin ORAL tablet Take one(1) tablet daily. 0 Active Comment on above: Take one(1) tablet d aily. OMEGA-3 FATTY ACIDS/FISH OIL (OMEGA 3 FISH OIL ORAL) (1 source) OMEGA-3 FATTY ACIDS/FISH OIL (OMEGA 3 FISH OIL ORAL) Take by mouth. Takes two capsules in daytime and two in evening 0 Active Comment on above: Take by mouth. Takes two capsules in daytime and two in evening Problems Active Problems Problem Classification Problem Date Documented Da te Episodic/Chronic Cardiac dysrhythmias (7 sources) Paroxysmal atrial fibrillation; Translations: [Paroxysmal atrial fibrillation] Onset: 04-20-2025 07-27-2023 Chronic Disorders of lipid metabolism (4 sources) Hyperlipidemia; Translations: [Hyperlipidemia, unspecified] 07-27-2023 Chronic Essential hypertension (1 source) Essential (primary) hypertension; Translations: [Essential (primary) hypertension] Onset: 07-11-2025 Chronic Immunizations and screening for infectious disease (1 source) Patient encounter status; Translations: [Encounter for immunization] Episodic Other injuries and conditions due to external causes (1 source) Unspecified injury of head, initial encounter; Translations: [Unspecified injury of head, initial encounter] Onset: 04-18-2025 Episodic Other screening for suspected conditions (not mental disorders or infectious disease) (1 source) Encounter for screening mammogram for malignant neoplasm of breast; Translations: [Encounter for screening mammogram for malignant neoplasm of breast] Onset: 07-14-2025 Episodic Skull and face fractures (1 source) Fracture of nasal bones, initial encounter for closed fracture; Translations: [Fracture of nasal bones, initial encounter for closed fracture] Onset: 05-29-2025 Episodic Past or Other Problems Problem Classification [...] [Nevus, non-neoplastic] Onset: 09-17-2006 09-17-2006 Episodic Other connective tissue disease (1 source) Other shoulder lesions, right shoulder; Translations: [Other shoulder lesions, right shoulder] Onset: 11-12-2024 Episodic Other connective tissue disease (1 source) Unspecified rotator cuff tear or rupture of right shoulder, not specified as traumatic; Translations: [Unspecified rotator cuff tear or rupture of right shoulder, not specified as traumatic] Onset: 10-11-2024 Episodic Other skin disorders (1 source) Disorder [...] [Viral wart, unspecified] Onset: 09-17-2006 09-17-2006 Episodic Results Test Name Value Interpretation Reference Range Facility CBC W/Diff, Automatedon 08-0 Absolute Lymph 1.40 X10 3/uL Normal 0.83-4.51 [facility] Comment on above: Performed By: #### L 500.4050, L100.0100, L506.1001, L501.9520, L500.4100 ####[facility] [address] [place], [address] Absolute Neut 2.1 X10 3/uL Normal 2.0-7.7 [facility] Comment on above: Performed By: #### L 500.4050, L100.0100, L506.1001, L501.9520, L500.4100 ####[facility] [address] [place], [address] Basophils/100 WBC (Bld) 0.5 % Normal 0-1 [facility] Comment on above: Performed By: #### L 500.4050, L100.0100, L506.1001, L501.9520, L500.4100 ####[facility] [address] [place], [address] Eosinophils/100 WBC (Bld) 1.7 % Normal 0-5 [facility] Comment on above: Performed By: #### L 500.4050, L100.0100, L506.1001, L501.9520, L500.4100 ####[facility] [address] [place], [address] Erythrocyte distribution width (RBC) [Ratio] 11.9 % Normal 11.6-14.6 [facility] Comment on above: Performed By: #### L 500.4050, L100.0100, L506.1001, L501.9520, L500.4100 ####[facility] [address] [place], [address] Hematocrit (Bld) [Volume fraction] 40.6 % Normal 37-47 [facility] Comment on above: Performed By: #### L 500.4050, L100.0100, L506.1001, L501.9520, L500.4100 ####[facility] [address] [place], [address] Hemoglobin (Bld) [Mass/Vol] 14.2 g/dL Normal 12.0-15.0 [facility] Comment on above: Performed By: #### L 500.4050, L100.0100, L506.1001, L501.9520, L500.4100 ####[facility] [address] [place], [address] IG% 0.200 Normal 0.0-0.9 [facility] Comment on above: Result Comment: IG% - Immature Granulocytes (promyelocytes, myelocytes and metamyelocytes) > 1% indicates that a LEFT SHIFT is Present. Performed By: #### L 500.4050, L100.0100, L506.1001, L501.9520, L500.4100 ####[facility] [address] [place], [address] Lymphocytes/100 WBC (Bld) 34.9 % Normal 19-41 [facility] Comment on above: Performed By: #### L 500.4050, L100.0100, L506.1001, L501.9520, L500.4100 ####[facility] [address] [place], [address] MCH (RBC) [Entitic mass] 31.7 pg Normal 27.0-32.0 [facility] Comment on above: Performed By: #### L 500.4050, L100.0100, L506.1001, L501.9520, L500.4100 ####[facility] [address] [place], [address] MCHC (RBC) [Mass/Vol] 35.0 g/dL Normal 32-36 [facility] Comment on above: Performed By: #### L 500.4050, L100.0100, L506.1001, L501.9520, L500.4100 ####[facility] [address] [place], [address] MCV (RBC) [Entitic vol] 90.6 fL Normal 81-99 [facility] Comment on above: Performed By: #### L 500.4050, L100.0100, L506.1001, L501.9520, L500.4100 ####[facility] [address] [place], [address] Monocytes/100 WBC (Bld) 10.5 % High 0-10 [facility] Comment on above: Performed By: #### L 500.4050, L100.0100, L506.1001, L501.9520, L500.4100 ####[facility] [address] [place], [address] Neutrophils/100 WBC (Bld) 52.2 % Normal 47-70 [facility] Comment on above: Performed By: #### L 500.4050, L100.0100, L506.1001, L501.9520, L500.4100 ####[facility] [address] [place], [address] Nucleated RBC (Bld) [#/Vol] 0 10*3/uL Normal 0-5 [facility] Comment on above: Performed By: #### L 500.4050, L100.0100, L506.1001, L501.9520, L500.4100 ####[facility] [address] [place], [address] Platelet mean volume (Bld) [Entitic vol] 10.2 fL Normal 6.2-12.0 [facility] Comment on above: Performed By: #### L 500.4050, L100.0100, L506.1001, L501.9520, L500.4100 ####[facility] [address] [place], [address] Platelets (Bld) [#/Vol] 243 10*3/uL Normal 150-450 [facility] Comment on above: Performed By: #### L 500.4050, L100.0100, L506.1001, L501.9520, L500.4100 ####[facility] [address] [place], [address] RBC (Bld) [#/Vol] 4.48 10*6/uL Normal 4.2-5.4 [facility] Comment on above: Performed By: #### L 500.4050, L100.0100, L506.1001, L501.9520, L500.4100 ####[facility] [address] [place], [address] RDW SD 39.5 fl Normal 35.1-43.9 [facility] Comment on above: Performed By: #### L 500.4050, L100.0100, L506.1001, L501.9520, L500.4100 ####[facility] [address] [place], [address] WBC (Bld) [#/Vol] 4.0 10*3/uL Low 4.4-11.0 [facility] Comment on above: Performed By: #### L 500.4050, L100.0100, L506.1001, L501.9520, L500.4100 ####[facility] [address] [place], [address] Comprehensive Metabolic Prof [facility] 07-05-2025 Albumin [Mass/Vol] 4.3 g/dL Normal 3.4-4.8 [facility] Comment on above: Performed By: #### L 500.4050, L100.0100, L506.1001, L501.9520, L500.4100 ####[facility] [address] [place], [address] Albumin/Globulin [Mass ratio] 1.7 {ratio} Normal 0.9-2.4 [facility] Comment on above: Performed By: #### L 500.4050, L100.0100, L506.1001, L501.9520, L500.4100 ####[facility] [address] [place], [address] ALK PHOS 65 U/L Normal 35-104 [facility] Comment on above: Performed By: #### L 500.4050, L100.0100, L506.1001, L501.9520, L500.4100 ####[facility] [address] [place], [address] ALT [Catalytic activity/Vol] 25 U/L Normal <=34 [facility] Comment on above: Performed By: #### L 500.4050, L100.0100, L506.1001, L501.9520, L500.4100 ####[facility] [address] [place], [address] AST [Catalytic activity/Vol] 30 U/L Normal <=31 [facility] Comment on above: Performed By: #### L 500.4050, L100.0100, L506.1001, L501.9520, L500.4100 ####[facility] [address] [place], [address] Bilirubin [Mass/Vol] 0.39 mg/dL Normal 0.00-1.30 [facility] Comment on above: Performed By: #### L 500.4050, L100.0100, L506.1001, L501.9520, L500.4100 ####[facility] [address] [place], [address] BUN/CRE 18.4 RATIO Normal 10-20 [facility] Comment on above: Performed By: #### L 500.4050, L100.0100, L506.1001, L501.9520, L500.4100 ####[facility] [address] [place], [address] Calcium [Mass/Vol] 9.5 mg/dL Normal 7.6-11.0 [facility] Comment on above: Performed By: #### L 500.4050, L100.0100, L506.1001, L501.9520, L500.4100 ####[facility] [address] [place], [address] Chloride [Moles/Vol] 106 mmol/L Normal 98-108 [facility] Comment on above: Performed By: #### L 500.4050, L100.0100, L506.1001, L501.9520, L500.4100 ####[facility] [address] [place], [address] CO2 [Moles/Vol] 21.1 mmol/L Normal 21.0-32.0 [facility] Comment on above: Performed By: #### L 500.4050, L100.0100, L506.1001, L501.9520, L500.4100 ####[facility] [address] [place], [address] Creatinine [Mass/Vol] 0.72 mg/dL Normal 0.70-1.20 [facility] Comment on above: Performed By: #### L 500.4050, L100.0100, L506.1001, L501.9520, L500.4100 ####[facility] [address] [place], [address] GAP 12 Normal 5-15 [facility] Comment on above: Performed By: #### L 500.4050, L100.0100, L506.1001, L501.9520, L500.4100 ####[facility] [address] [place], [address] GFR/1.73 sq M.predicted among non-blacks MDRD (S/P/Bld) [Vol rate/Area] 84 mL/min/{1.73_m2} Normal >60 [facility] Comment on above: Result Comment: mL/m in/1.73m2 CKD-EPI Creatinine Equation (2020) Performed By: #### L 500.4050, L100.0100, L506.1001, L501.9520, L500.4100 ####[facility] [address] [place], [address] Globulin (S) [Mass/Vol] 2.6 g/dL Normal 2.2-4.2 [facility] Comment on above: Performed By: #### L 500.4050, L100.0100, L506.1001, L501.9520, L500.4100 ####[facility] [address] [place], [address] Glucose [Mass/Vol] 107 mg/dL High 70-99 [facility] Comment on above: Performed By: #### L 500.4050, L100.0100, L506.1001, L501.9520, L500.4100 ####[facility] [address] [place], [address] Potassium [Moles/Vol] 4.1 mmol/L Normal 3.3-5.1 [facility] Comment on above: Performed By: #### L 500.4050, L100.0100, L506.1001, L501.9520, L500.4100 ####[facility] [address] [place], [address] Sodium [Moles/Vol] 139 mmol/L Normal 133-145 [facility] Comment on above: Performed By: #### L 500.4050, L100.0100, L506.1001, L501.9520, L500.4100 ####[facility] [address] [place], [address] T PROT 6.9 g/dL Normal 5.9-8.4 [facility] Comment on above: Performed By: #### L 500.4050, L100.0100, L506.1001, L501.9520, L500.4100 ####[facility] [address] [place], [address] Urea nitrogen [Mass/Vol] 13 mg/dL Normal 4-19 [facility] Comment on above: Performed By: #### L 500.4050, L100.0100, L506.1001, L501.9520, L500.4100 ####[facility] [address] [place], [address] Lipid Profileon 07-05-2025 CHOL:HDL 2.[address] [facility] Comment on above: Performed By: #### L 500.4050, L100.0100, L506.1001, L501.9520, L500.4100 ####[facility] [address] [place], [address] Cholesterol [Mass/Vol] 235 mg/dL High <=200 [facility] Comment on above: Result Comment: Chol esterol level, Desirable <200 mg/dL Borderline high cholesterol 200-239 mg/dL High cholesterol >=240 mg/dL Recommendations of the NCEP Adult Treatment Panel for the following risk-cutoff thresholds for the [place] population. Performed By: #### L 500.4050, L100.0100, L506.1001, L501.9520, L500.4100 ####[facility] [address] [place], [address] Cholesterol in HDL [Mass/Vol] 84 mg/dL Normal [facility] Comment on above: Result Comment: Rosette onal Cholesterol Education Program (NCEP) guidelines: <40 mg/dL: Low HDL-cholesterol (major risk factor for CHD) >= 60 mg/dL: High HDL-cholesterol (negative risk factor for CHD) HDL-cholesterol is affected by a number of factors, e.g. smoking, exercise, hormones, sex and age. Performed By: #### L 500.4050, L100.0100, L506.1001, L501.9520, L500.4100 ####[facility] [address] [place], [address] Cholesterol in LDL [Mass/Vol] 132 mg/dL Normal [facility] Comment on above: Result Comment: Bord xsdcas=966-025 mg/dL Higher Bkmo=933 mg/dL or greater Friedwald Equation for LDL-C Performed By: #### L 500.4050, L100.0100, L506.1001, L501.9520, L500.4100 ####[facility] [address] [place], [address] Cholesterol in VLDL [Mass/Vol] 19 mg/dL Normal 5-40 [facility] Comment on above: Performed By: #### L 500.4050, L100.0100, L506.1001, L501.9520, L500.4100 ####[facility] [address] [place], [address] Triglyceride [Mass/Vol] 94 mg/dL Normal [facility] Comment on above: Result Comment: The drugs N-Acetylcysteine and Metamizole may falsely depress this assay. Normal range: <150 mg/dL Borderline High: 150-199 mg/dL High: 200-499 mg/dL Very High: >500 mg/dL Performed By: #### L 500.4050, L100.0100, L506.1001, L501.9520, L500.4100 ####[facility] [address] [place], [address] Thyroid Stim Hormone (TSH)on 07-05-2025 TSH 0.776 uIU/mL Normal 0.300-4.200 [facility] Comment on above: Performed By: #### L 500.4050, L100.0100, L506.1001, L501.9520, L500.4100 ####[facility] [address] [place], [address] Vitamin D,25 Hydroxyon 07-05 Vitamin D 25-OH 65.8 ng/mL Normal 30-100 [facility] Comment on above: Result Comment: Penny min D Status Deficiency: <20 ng/mL (50nmol/L) Insufficiency: 20-30 ng/mL (50-75 nmol/L) Sufficiency: 30-100 ng/mL (75-250 nmol/L) Toxicity: >100 ng/mL (>250 nmol/L) Performed By: #### L 500.4050, L100.0100, L506.1001, L501.9520, L500.4100 ####[facility] [address] [place], [address] Cardiology Visit Reporton Cardiology Visit Report [facility] [address] [place] [address] OFFICE VISIT Date of Service: 04/20/25 MR#: [id number] Acct: [id number] Name: BETTE ZUNIGA Rep #: [id number] : 1940 Provider: DOREEN perez Age/Sex: 84/F Location: [facility] [place] Status: Signed HPI HPI History of Present Illness Details: Pleasant 84-year-old lady who presents to the office today for a cardiovascular follow up visit. She has no previous cardiac history who presents for an evaluation of her heart rhythm after noting on her Apple Watch in general December of 2022 that she was in A-fib. She thinks that she was in for a very short period of time. She had been under tremendous amount of stress with her who had developed esophageal cancer. Patient presented to the emergency room on 04/14/2025 after falling. She did have a nasal fracture. She was noted to be bradycardic in the emergency room, with a heart rate of 58. From a cardiac standpoint, the patient is doing well. She denies any palpitations, chest pain, pressure, or heaviness. She denies SOB, Orthopnea, and PND. She does not have bleeding issues; no blood in urine, stool or nosebleeds. She denies any decrease in energy level, myalgias, or claudication. She does not have edema, or sudden weight gain. She does have occasional lightheadedness after taking medications. Her amlodipine was discontinued by her PCP. She denies dizziness, syncopal or near syncopal episodes, and headaches. She does monitor her heart rates at home with her watch. Intake Vital Signs 04/14/25 12:22 04/20/25 07:01 Height 5 ft 3 in 5 ft 4 in Weight: 155 lb BMI 26.6 BP 157/89 H Blood Pressure Location Lt brachial Position Sitting Respiration 18 Pulse 48 L Pulse Source Monitor Pulse Oximetry (%) 95 Intake Visit Reasons: ED follow up Janitor Head Required: No Is patient in pain?: No Allergies chlorpromazine (From Thorazine) Allergy (Unknown, Verified 04/20/25 11:03) Unknown Medications ???Medication ???Instructions ???Recorded ???Confirmed ???Type calcium 600 mg (as 1 tab PO DAILY 07/27/23 04/20/25 H istory carbonate)-vitamin D3 5 mcg (200 unit) tablet (Calcium 600 + D(3)) cholecalciferol (vitamin D3) 25 25 mcg PO DAILY 07/27/23 04/20/25 History mcg (1,000 unit) tablet guaifenesin 600 mg tablet, 600 mg PO BID 07/27/23 04/20/25 Hi story extended release 12 hr (Mucinex) multivitamin with minerals 1 cap PO DAILY 07/27/23 04/20/25 H istory omega 9-qdi-kfj-fish oil 1,200 mg cap PO 07/27/23 04/20/25 History (144 mg-216 mg) capsule (Fish Oil) psyllium [Metamucil] PO 07/27/23 04/20/25 History turmeric 400 mg capsule 400 mg PO DAILY 07/27/23 04/20/25 History cranberry fruit 400 mg capsule 400 mg PO BID 08/25/23 04/20/25 Hi story metoprolol succinate 25 mg 12.5 mg (1/2 x 25 mg) PO DAILY #45 04/20/25 04/20/25 Rx tablet,extended release 24 hr tabs Ejection fraction %: 60 Have you fallen in the past year?: Yes PFSH Medical History Frequent headaches Hypertension Cataracts, bilateral Paroxysmal atrial fibrillation Eczema Vitamin D deficiency Hyperlipidemia Depression Allergic rhinitis Asthma Surgical History History of bilateral cataract extraction History of hysterectomy History of tonsillectomy Family History Mother Dementia Colon cancer Anemia Father CVA (cerebral vascular accident) Grandmother Diabetes Other Angina at rest Breast cancer Depression Osteoporosis Social History Smoking Status: Former smoker alcohol intake: never substance use type: does not use caffeine: Yes Type: coffee Number of servings: 2 ROS Const Const: Negative for fatigue, weakness, headache(s) or frequent falls Eyes Eyes: Negative for blurry vision ENT ENT: Negative for headache(s), dizziness or Nosebleed/epistaxis Cardio Chest Pain: No Palpitations: No Edema: None Muscle aches with walking: None Additional Details: fell broke nose was in the ER Resp Respiratory: Negative for SOB with activity, SOB at rest or SOB orthopnea SOB lying down GI GI: Negative nausea, vomiting, heartburn, bright, red blood in stools or black,tarry stools : Negative for hematuria Neuro Neuro: Positive for lightheadedness; Negative for dizziness, near syncope, syncope, frequent falls, headache(s), weakness or blurry vision Endo Endo: Negative for fatigue Cardiology Exam Const Appearance: cooperative, healthy appearing, no acute distress, well developed and well groomed Nutritional Appearance (more content not included)... Normal [facility] Plastic Surgery Visit Report on 04-19-2025 Plastic Surgery Visit Report [facility] Plastic Reconstructive Surgery [address], [address] [place] [address] OFFICE VISIT Date of Service: 04/19/25 MR#: [id number] Acct: [id number] Name: BETTE ZUNIGA Rep #: [id number] : 1940 Provider: Dr. Pablo Starkey MD Age/Sex: 84/F Location: [facility] Status: Signed Intake Vital Signs 04/14/25 12:22 04/19/25 14:04 Height 5 ft 3 in 5 ft 4 in Weight: 156 lb BMI 26.7 BP 148/82 H Blood Pressure Location Lt brachial Position Sitting Respiration 16 Pulse 54 L Temp 98.5 F Temp Source Temporal Pulse Oximetry (%) 96 Oxygen Delivery Method room air Intake Visit Reasons: ED FOLLOW UP Chief Complaint: ED follow up, nose fracture Accompanied by: Daughter Is patient in pain?: No Allergies chlorpromazine (From Thorazine) Allergy (Unknown, Verified 04/19/25 14:03) Unknown Medications ???Medication ???Instructions ???Recorded ???Confirmed ???Type calcium 600 mg (as 1 tab PO DAILY 07/27/23 08/30/24 H istory carbonate)-vitamin D3 5 mcg (200 unit) tablet (Calcium 600 + D(3)) cetirizine 10 mg tablet (Zyrtec) 5 mg PO DAILY PRN 07/27/23 4 History cholecalciferol (vitamin D3) 25 25 mcg PO DAILY 07/27/23 08/30/24 History mcg (1,000 unit) tablet guaifenesin 600 mg tablet, 600 mg PO BID 07/27/23 08/30/24 Hi story extended release 12 hr (Mucinex) multivitamin with minerals 1 cap PO DAILY 07/27/23 08/30/24 H istory omega 8-gzi-vtn-fish oil 1,200 mg cap PO 07/27/23 08/30/24 History (144 mg-216 mg) capsule (Fish Oil) psyllium [Metamucil] PO 07/27/23 08/30/24 History turmeric 400 mg capsule 400 mg PO DAILY 07/27/23 08/30/24 History cranberry fruit 400 mg capsule 400 mg PO BID 08/25/23 08/30/24 Hi story metoprolol succinate 50 mg 25 mg (1/2 x 50 mg) PO DAILY #90 1 04/19/25 Rx tablet,extended release 24 hr tabs (Toprol XL) amlodipine 5 mg tablet 5 mg PO DAILY #180 tabs 11/06/24 Rx Have you fallen in the past year?: Yes (fell on wednesday, nasal fracture) Nurse's Note: pt here with daughter after follow up from ED visit, pt reports falling on Wednesday and fracture nose. [facility] Medical History Frequent headaches Hypertension Cataracts, bilateral Paroxysmal atrial fibrillation Eczema Vitamin D deficiency Hyperlipidemia Depression Allergic rhinitis Asthma Surgical History History of bilateral cataract extraction History of hysterectomy History of tonsillectomy Family History Mother Dementia Colon cancer Anemia Father CVA (cerebral vascular accident) Grandmother Diabetes Other Angina at rest Breast cancer Depression Osteoporosis Social History Smoking Status: Former smoker alcohol intake: never substance use type: does not use caffeine: Yes Type: coffee Number of servings: 2 HPI ED FOLLOW UP Details: Bette Zuniga is a delightful 84-year-old female with history of atrial fibrillation and hypertension, not currently on any blood thinner, who presents for clinic follow-up after a nasal fracture that occurred on 14 Apr 2025 when she fell picking up sticks. This was a purely mechanical fall. She has small abrasion on her nose. She is up-to-date on her tetanus. Today she denies any nasal obstruction. She does have some slight tenderness on the dorsum of her nose. The fracture was diagnosed with a CT face in the emergency department. 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 She does not, however, noticed much of a deformity of her nose since the injury. She is happy with the weight looks. Her daughter does not really notice much difference either. ROS General General: Yes good health; No fatigue, fever(s) or weight loss HENMT HENMT: No rhinitis, sore throat/mouth sore, nasal congestion, contacts or glaucoma Endo Endocrine: No thyroid disease, polydipsia, heat intolerance, cold intolerance, hepatitis or excessive urine Skin Skin: No Bleeding, bruising, changing moles or suspicious lesion Musc Musculoskeletal: No joint pain, joint stiffness, muscle weakness, back pain, osteoarthritis or Muscle aches/ myalgia Neuro Neurological: No headache(s), No lightheadedness and No numbness Cardio Cardiovascular: No chest pain, pacemaker, fatigue or shortness of breat with exertion Psych Psychiatric: No depression, claustrophobia or anxiety Resp Respiratory: No spitting up, shortness of breath, sleep apnea, asthma, emphysema, TB, Cough or Smoker Gastro Gastrointestin (more content not included)... Normal [facility] Brain/Head without Contrasto n 04-14-2025 Brain/Head without Contrast [facility] Imaging Services [address] [place] [address] Brain/Head without Contrast MR#: [id number] Acct: [id number] Name: BETTE ZUNIGA Rep #: [id number] : 1940 F 84 From: Pravin Honeycutt MD PCP: Dr. Bolivar Collins MD Status: REG ER Study: Brain/Head without Contrast Date of Exam: 03/29 06/22 Exam# [id number] Ordering Dr: Terrance Gardner MD EXAM: CT Head Without Intravenous Contrast CLINICAL INDICATION: TRAUMA TECHNIQUE: Axial computed tomography images of the head/brain without intravenous contrast. This CT exam was performed using one or more of the following dose reduction techniques: automated exposure control, adjustment of the mA and/or kV according to patient size, and/or use of iterative reconstruction technique. COMPARISON: CT Head dated 01/01/2024 FINDINGS: BRAIN AND EXTRA-AXIAL SPACES: Areas of decreased attenuation in the deep cerebral white matter are consistent with small vessel ischemic/degenerative changes. The cerebral and cerebellar sulci are prominent consistent with brain atrophy. No acute intracranial hemorrhage, midline shift or mass effect. If symptoms persist, further evaluation with MRI is recommended. BONES/JOINTS: Unremarkable. No acute fracture. SOFT TISSUES: Unremarkable. SINUSES: Unremarkable as visualized. No acute sinusitis. MASTOID AIR CELLS: Unremarkable as visualized. No mastoid effusion. CT/Brain/Head without Contrast IMPRESSION: 1. Small vessel ischemic/degenerative changes. 2. Generalized brain atrophy. 3. No acute intracranial hemorrhage, midline shift or mass effect. If symptoms persist, further evaluation with MRI is recommended. 4. No significant change from the prior exam. Reading Location: [facility] CC: Dr. Terrance Gardner MD; Dr. Bolivar Collins MD Desk Top Publisher: Signed Normal [facility] Emergency Department Summary on 04-14-2025 Emergency Department Summary [facility] Medical Records Department [address] [place] [id number] Emergency Department Summary 04/14/25 MR#: [id number] Acct: [id number] Name: BETTE ZUNIGA Rep #: [id number] : 1940 84 From: Terrance Gardner MD PCP: Dr. Bolivar Collins MD Status:REG ER Location: ED HPI History of Present Illness Chief Complaint: Head Injury Narrative Narrative: 84-year-old female past medical history of atrial fibrillation and hypertension, not on blood thinners, presents with her daughter because of fall with injury to her nose and forehead. She states that this morning around 10 AM, approximately 3 hours ago, she was outside picking up sticks. She was wearing her boots, and she tripped up and fell forward. She was wearing sunglasses and her glasses abraded her nose. She feels that her tetanus is immunization is current, within the last 10 years. She complains of pain in her nose without bleeding, mainly left forehead pain, and neck stiffness at the base of her skull bilaterally. She denies other injuries. No loss of consciousness. Her daughter was more concerned because patient fell about a year ago and did not tell anyone for weeks. [facility] Medical History Paroxysmal atrial fibrillation Eczema Vitamin D deficiency Hyperlipidemia Depression Allergic rhinitis Asthma Home Medications ???Medication ???Instructions ???Recorded ???Last Taken ???Type calcium 600 mg (as 1 tab PO DAILY 07/27/23 Unknown Hi story carbonate)-vitamin D3 5 mcg (200 unit) tablet (Calcium 600 + D(3)) cetirizine 10 mg tablet (Zyrtec) 5 mg PO DAILY PRN 07/27/23 Unknown History cholecalciferol (vitamin D3) 25 25 mcg PO DAILY 07/27/23 Unknown H istory mcg (1,000 unit) tablet guaifenesin 600 mg tablet, 600 mg PO BID 07/27/23 Unknown His tory extended release 12 hr (Mucinex) multivitamin with minerals 1 cap PO DAILY 07/27/23 Unknown Hi story omega 8-tbv-hav-fish oil 1,200 mg cap PO 07/27/23 Unknown History (144 mg-216 mg) capsule (Fish Oil) psyllium [Metamucil] PO 07/27/23 Unknown History turmeric 400 mg capsule 400 mg PO DAILY 07/27/23 Unknown H istory cranberry fruit 400 mg capsule 400 mg PO BID 08/25/23 Unknown His tory metoprolol succinate 50 mg 25 mg (1/2 x 50 mg) PO DAILY #90 1 Unknown Rx tablet,extended release 24 hr tabs (Toprol XL) amlodipine 5 mg tablet 5 mg PO DAILY #180 tabs 11/06/24 U nknown Rx Allergy/AdvReac Type Severity Reaction Status Date / Time chlorpromazine (From Allergy Unknown Unknown Verified 04/14/25 12:22 Thorazine) Family History Mother Dementia Colon cancer Anemia Father CVA (cerebral vascular accident) Grandmother Diabetes Surgical History History of bilateral cataract extraction History of hysterectomy History of tonsillectomy Social History Smoking Status: Former smoker alcohol intake: never substance use type: does not use caffeine: Yes Type: coffee Number of servings: 2 ROS ROS ED ROS Narrative Review of systems positive for abrasion to nose with nasal pain, left forehead pain, and neck stiffness at base of skull bilaterally. Denies any paresthesias of arms or legs. No reported loss of consciousness. Denies other injury. EXAM Physical Exam Narrative Exam Narrative: GCS 15. ABCs are intact. Mild tenderness palpation left forehead without overt hematoma. No evidence of bleeding intranasally. Positive linear abrasion, superficial to nose approximately 1.5 cm without active bleeding. No nasal septal hematoma. No crepitance of face. PERRL, EOMI. Neck soft and supple without vertebral point tenderness or bony step-off. Mild tenderness palpation paraspinal musculature at base of skull bilaterally. Cardiovascular examination reveals a bradycardia. Lungs are clear to auscultation bilaterally. Abdomen soft and nontender without guarding or rebound. Able to raise arms above head without difficulty, neurological examination nonfocal and nonlateralizing. Awake, alert, oriented x 3. Const Vital Signs: 04/14/25 12:22 04/14/25 12:26 Temperature 98.6 F Temperature Source Temporal Pulse Rate 58 L Respiratory Rate 16 Respiratory Effort Normal Non-Labored Respiratory Depth Normal Respiratory Pattern Normal Blood Pressure 174/81 H Blood Pressure Mean 112 Pulse Ox 95 Oxygen Delivery Method Room Air MDM MDM MDM Narrative Medical decision making narrative: Differential diagnosis includes but not limited to nasal fracture versus contusion versus closed head injury versus skull fracture with intracranial hemorrhage versus n (more content not included)... Normal [facility] Sinus/Facial Boneon 04-14-20 Sinus/Facial Bone [facility] Imaging Services [address] [place], [place] [id number] Sinus/Facial Bone MR#: [id number] Acct: [id number] Name: BETTE ZUNIGA Rep #: [id number] : 1940 F 84 From: Pravin Honeycutt MD PCP: Dr. Bolivar Collins MD Status: REG ER Study: Sinus/Facial Bone Date of Exam: 04/14/25 Exam# [id number] Ordering Dr: Terrance Gardner MD EXAM: CT Maxillofacial Without Intravenous Contrast CLINICAL INDICATION: TRAUMA TECHNIQUE: Axial computed tomography images of the face without intravenous contrast. This CT exam was performed using one or more of the following dose reduction techniques: automated exposure control, adjustment of the mA and/or kV according to patient size, and/or use of iterative reconstruction technique. COMPARISON: No relevant prior studies available. FINDINGS: BONES/JOINTS: See below. SOFT TISSUES: Cortical irregularity and depressed tip of the nasal ridge with overlying soft tissue swelling concerning for mildly depressed compression fracture. ORBITS: Unremarkable. SINUSES: Unremarkable. No air-fluid levels. CT/Sinus/Facial Bone IMPRESSION: Cortical irregularity and depressed tip of the nasal ridge with overlying soft tissue swelling concerning for mildly depressed compression fracture. Reading Location: [facility] CC: Dr. Terrance Gardner MD; Dr. Bolivar Collins MD Desk Top Publisher: Signed Normal [facility] Spine Cervical without Contr ason 04-14-2025 Spine Cervical without Contras [facility] [address] [place] [address] Spine Cervical without Contras MR#: [id number] Acct: [id number] Name: BETTE ZUNIGA Rep #: [id number] : 1940 F 84 From: Pravin Honeycutt MD PCP: Dr. Bolivar Collins MD Status: REG ER Study: Spine Cervical without Contras Date of Exam: 0 04/14/25 Exam# [id number] Ordering Dr: Terrance Gardner MD EXAM: CT Cervical Spine Without Intravenous Contrast CLINICAL INDICATION: TRAUMA TECHNIQUE: Axial computed tomography images of the cervical spine without intravenous contrast. This CT exam was performed using one or more of the following dose reduction techniques: automated exposure control, adjustment of the mA and/or kV according to patient size, and/or use of iterative reconstruction technique. COMPARISON: No relevant prior studies available. FINDINGS: VERTEBRAE: Mild reversal cervical spine lordosis. Degenerative facet arthropathy throughout the cervical spine. No acute fracture. DISCS/SPINAL CANAL/NEURAL FORAMINA: Degenerative disc disease lower cervical spine. SOFT TISSUES: Unremarkable. CT/Spine Cervical without Contras IMPRESSION: 1. No acute fracture. 2. Degenerative changes cervical spine as described. Reading Location: [facility] CC: Dr. Terrance Gardner MD; Dr. Bolivar Collins MD Desk Top Publisher: Signed Normal [facility] CBC W/Diff, Automatedon 02-0 Absolute Lymph 1.44 X10 3/uL Normal 0.83-4.51 [facility] Comment on above: Performed By: #### L 100.0100, L500.4100, L500.4050, L501.9520, L506.1000 #### [facility] [address] [place], [address] Absolute Neut 2.5 X10 3/uL Normal 2.0-7.7 [facility] Comment on above: Performed By: #### L 100.0100, L500.4100, L500.4050, L501.9520, L506.1000 #### [facility] [address] [place], [address] Basophils/100 WBC (Bld) 0.7 % Normal 0-1 [facility] Comment on above: Performed By: #### L 100.0100, L500.4100, L500.4050, L501.9520, L506.1000 #### [facility] [address] [place], [address] Eosinophils/100 WBC (Bld) 1.8 % Normal 0-5 [facility] Comment on above: Performed By: #### L 100.0100, L500.4100, L500.4050, L501.9520, L506.1000 #### [facility] [address] [place], [address] Erythrocyte distribution width (RBC) [Ratio] 11.9 % Normal 11.6-14.6 [facility] Comment on above: Performed By: #### L 100.0100, L500.4100, L500.4050, L501.9520, L506.1000 #### [facility] [address] [place], [address] Hematocrit (Bld) [Volume fraction] 41.7 % Normal 37-47 [facility] Comment on above: Performed By: #### L 100.0100, L500.4100, L500.4050, L501.9520, L506.1000 #### [facility] [address] [place], [address] Hemoglobin (Bld) [Mass/Vol] 14.2 g/dL Normal 12.0-15.0 [facility] Comment on above: Performed By: #### L 100.0100, L500.4100, L500.4050, L501.9520, L506.1000 #### [facility] [address] [place], [address] IG% 0.500 Normal 0.0-0.9 [facility] Comment on above: Result Comment: IG% - Immature Granulocytes (promyelocytes, myelocytes and metamyelocytes) > 1% indicates that a LEFT SHIFT is Present. Performed By: #### L 100.0100, L500.4100, L500.4050, L501.9520, L506.1000 #### [facility] [address] [place], [address] Lymphocytes/100 WBC (Bld) 32.6 % Normal 19-41 [facility] Comment on above: Performed By: #### L 100.0100, L500.4100, L500.4050, L501.9520, L506.1000 #### [facility] [address] [place], [address] MCH (RBC) [Entitic mass] 30.9 pg Normal 27.0-32.0 [facility] Comment on above: Performed By: #### L 100.0100, L500.4100, L500.4050, L501.9520, L506.1000 #### [facility] [address] [place], [address] MCHC (RBC) [Mass/Vol] 34.1 g/dL Normal 32-36 [facility] Comment on above: Performed By: #### L 100.0100, L500.4100, L500.4050, L501.9520, L506.1000 #### [facility] [address] [place], [address] MCV (RBC) [Entitic vol] 90.7 fL Normal 81-99 [facility] Comment on above: Performed By: #### L 100.0100, L500.4100, L500.4050, L501.9520, L506.1000 #### [facility] [address] [place], [address] Monocytes/100 WBC (Bld) 9.0 % Normal 0-10 [facility] Comment on above: Performed By: #### L 100.0100, L500.4100, L500.4050, L501.9520, L506.1000 #### [facility] [address] [place], [address] Neutrophils/100 WBC (Bld) 55.4 % Normal 47-70 [facility] Comment on above: Performed By: #### L 100.0100, L500.4100, L500.4050, L501.9520, L506.1000 #### [facility] [address] [place], [address] Nucleated RBC (Bld) [#/Vol] 0 10*3/uL Normal 0-5 [facility] Comment on above: Performed By: #### L 100.0100, L500.4100, L500.4050, L501.9520, L506.1000 #### [facility] [address] [place], [address] Platelet mean volume (Bld) [Entitic vol] 10.1 fL Normal 6.2-12.0 [facility] Comment on above: Performed By: #### L 100.0100, L500.4100, L500.4050, L501.9520, L506.1000 #### [facility] [address] [place], [address] Platelets (Bld) [#/Vol] 277 10*3/uL Normal 150-450 [facility] Comment on above: Performed By: #### L 100.0100, L500.4100, L500.4050, L501.9520, L506.1000 #### [facility] [address] [place], [address] RBC (Bld) [#/Vol] 4.60 10*6/uL Normal 4.2-5.4 [facility] Comment on above: Performed By: #### L 100.0100, L500.4100, L500.4050, L501.9520, L506.1000 #### [facility] [address] [place], [address] RDW SD 39.2 fl Normal 35.1-43.9 [facility] Comment on above: Performed By: #### L 100.0100, L500.4100, L500.4050, L501.9520, L506.1000 #### [facility] [address] [place], [address] WBC (Bld) [#/Vol] 4.4 10*3/uL Normal 4.4-11.0 [facility] Comment on above: Performed By: #### L 100.0100, L500.4100, L500.4050, L501.9520, L506.1000 #### [facility] [address] [place], [address] Comprehensive Metabolic Prof ilon 01-02-2025 Albumin [Mass/Vol] 3.7 g/dL Normal 3.2-5.0 [facility] Comment on above: Performed By: #### L 100.0100, L500.4100, L500.4050, L501.9520, L506.1000 #### [facility] [address] [place], [address] Albumin/Globulin [Mass ratio] 1.0 {ratio} Normal 0.9-2.4 [facility] Comment on above: Performed By: #### L 100.0100, L500.4100, L500.4050, L501.9520, L506.1000 #### [facility] [address] [place], [address] ALK P 83 U/L Normal 45-117 [facility] Comment on above: Performed By: #### L 100.0100, L500.4100, L500.4050, L501.9520, L506.1000 #### [facility] [address] [place], [address] ALT [Catalytic activity/Vol] 58 U/L High 13-56 [facility] Comment on above: Performed By: #### L 100.0100, L500.4100, L500.4050, L501.9520, L506.1000 #### [facility] [address] [place], [address] AST [Catalytic activity/Vol] 35 U/L Normal 15-37 [facility] Comment on above: Performed By: #### L 100.0100, L500.4100, L500.4050, L501.9520, L506.1000 #### [facility] [address] [place], [address] Bilirubin [Mass/Vol] 0.60 mg/dL Normal 0.20-1.00 [facility] Comment on above: Result Comment: For patients on eltrombopag therapy, use of Dimension [place] TBIL is not recommended. Performed By: #### L 100.0100, L500.4100, L500.4050, L501.9520, L506.1000 #### [facility] [address] [place], [address] BUN/CRE 15.0 RATIO Normal 10-20 [facility] Comment on above: Performed By: #### L 100.0100, L500.4100, L500.4050, L501.9520, L506.1000 #### [facility] [address] [place], [address] CA,Total 8.9 mg/dL Normal 8.5-10.1 [facility] Comment on above: Performed By: #### L 100.0100, L500.4100, L500.4050, L501.9520, L506.1000 #### [facility] [address] [place], [address] Chloride [Moles/Vol] 108 mmol/L High 98-107 [facility] Comment on above: Performed By: #### L 100.0100, L500.4100, L500.4050, L501.9520, L506.1000 #### [facility] [address] [place], [address] CO2 [Moles/Vol] 24.0 mmol/L Normal 21.0-32.0 [facility] Comment on above: Performed By: #### L 100.0100, L500.4100, L500.4050, L501.9520, L506.1000 #### [facility] [address] [place], [address] Creatinine [Mass/Vol] 0.80 mg/dL Normal 0.55-1.02 [facility] Comment on above: Result Comment: The validity of the calculated GFR GFRAA in patients over 70 years has not been determined. Clinical correlation is essential. Performed By: #### L 100.0100, L500.4100, L500.4050, L501.9520, L506.1000 #### [facility] [address] [place], [address] EST GFR - AA 89 mL/min Normal >60 [facility] Comment on above: Result Comment: Afri can [place]inamese GFR Calc Performed By: #### L 100.0100, L500.4100, L500.4050, L501.9520, L506.1000 #### [facility] [address] [place], [address] GAP 7 Normal 5-15 [facility] Comment on above: Performed By: #### L 100.0100, L500.4100, L500.4050, L501.9520, L506.1000 #### [facility] [address] [place], [address] GFR/1.73 sq M.predicted among non-blacks MDRD (S/P/Bld) [Vol rate/Area] 73 mL/min/{1.73_m2} Normal >60 [facility] Comment on above: Result Comment: Non- GFR Calc Performed By: #### L 100.0100, L500.4100, L500.4050, L501.9520, L506.1000 #### [facility] [address] [place], [address] Globulin (S) [Mass/Vol] 3.6 g/dL Normal 2.2-4.2 [facility] Comment on above: Performed By: #### L 100.0100, L500.4100, L500.4050, L501.9520, L506.1000 #### [facility] [address] [place], [address] Glucose [Mass/Vol] 102 mg/dL Normal 74-106 [facility] Comment on above: Result Comment: Fast ing Glucose result from 100 to 125 mg/dL suggests IMPAIRED HOMEOSTASIS per A.D.A. criteria. Performed By: #### L 100.0100, L500.4100, L500.4050, L501.9520, L506.1000 #### [facility] [address] [place], [address] Potassium [Moles/Vol] 4.0 mmol/L Normal 3.5-5.1 [facility] Comment on above: Performed By: #### L 100.0100, L500.4100, L500.4050, L501.9520, L506.1000 #### [facility] [address] [place], [address] Sodium [Moles/Vol] 139 mmol/L Normal 136-145 [facility] Comment on above: Performed By: #### L 100.0100, L500.4100, L500.4050, L501.9520, L506.1000 #### [facility] [address] [place], [address] T PROT 7.3 g/dL Normal 6.4-8.2 [facility] Comment on above: Performed By: #### L 100.0100, L500.4100, L500.4050, L501.9520, L506.1000 #### [facility] [address] [place], [address] Urea nitrogen [Mass/Vol] 12 mg/dL Normal 7-18 [facility] Comment on above: Performed By: #### L 100.0100, L500.4100, L500.4050, L501.9520, L506.1000 #### [facility] [address] [place], [address] Lipid Profileon 01-02-2025 Cholesterol [Mass/Vol] 208 mg/dL High 200 [facility] Comment on above: Result Comment: <200 mg/dL Desirable 200-240 mg/dL Borderline >240 mg/dL High Risk Performed By: #### L 100.0100, L500.4100, L500.4050, L501.9520, L506.1000 #### [facility] [address] [place], [address] Cholesterol in HDL [Mass/Vol] 65 mg/dL Normal [facility] Comment on above: Result Comment: The drugs N-Acetylcysteine and Metamizole may falsely depress this assay. Reference Range HDL <40 mg/dL Low HDL Cholesterol HDL >or= 60 mg/dL High HDL Cholesterol Performed By: #### L 100.0100, L500.4100, L500.4050, L501.9520, L506.1000 #### [facility] [address] [place], [address] Cholesterol in LDL [Mass/Vol] 125 mg/dL Normal 0-130 [facility] Comment on above: Performed By: #### L 100.0100, L500.4100, L500.4050, L501.9520, L506.1000 #### [facility] [address] [place], [address] Cholesterol in VLDL [Mass/Vol] 18 mg/dL Normal 5-40 [facility] Comment on above: Performed By: #### L 100.0100, L500.4100, L500.4050, L501.9520, L506.1000 #### [facility] [address] [place], [address] Triglyceride [Mass/Vol] 91 mg/dL Normal [facility] Comment on above: Result Comment: The drugs N-Acetylcysteine and Metamizole may falsely depress this assay. Serum Triglycerides Reference Interval Normal <150 mg/dL Borderline high 150 - 199 mg/dL High 200 - 499 mg/dL Very High > or = 500 mg/dL Performed By: #### L 100.0100, L500.4100, L500.4050, L501.9520, L506.1000 #### [facility] [address] [place], [address] Thyroid Stim Hormone (TSH)on 01-02-2025 TSH 0.480 uIU/mL Normal 0.358-3.740 [facility] Comment on above: Performed By: #### L 100.0100, L500.4100, L500.4050, L501.9520, L506.1000 ####[facility] [address] [place], [address] Vitamin D,25 Hydroxyon 01-02 Vitamin D 25-OH 50.6 ng/mL Normal [facility] Comment on above: Result Comment: Penny min D 25(OH) Status Range Deficiency <20 ng/mL (50nmol/L) Insufficiency 20 - 30 ng/mL (50 - 75 nmol/L) Sufficiency 30 - 100 ng/mL (75 - 250 nmol/L) Toxicity >100 ng/mL (>250 nmol/L) Performed By: #### L 100.0100, L500.4100, L500.4050, L501.9520, L506.1000 ####[facility] [address] [place], [address] Upper Ext Joint Only(Routine )on 10-16-2024 Upper Ext Joint Only(Routine) [facility] Services [address] [place] [address] Upper Ext Joint Only(Routine) MR#: [id number] Acct: [id number] Name: BETTE ZUNIGA Rep #: [id number] : 1940 F 84 From: Eliceo harden MD PCP: Dr. Bolivar Collins MD Status: REG CLI Study: Upper Ext Joint Only(Routine) Date of Exam: 12/16/23 Exam# [id number] Ordering Dr: Bolivar Collins MD [id number] STUDY: MRI RIGHT SHOULDER REASON FOR EXAM: Female, 84 years old. PAIN,ROTATOR CUFF TENDINITIS TECHNIQUE: Standardized fat and water weighted pulse sequences were obtained in all 3 orthogonal planes. COMPARISON: Right shoulder x-ray dated September 21, 2024 FINDINGS: A large full-thickness tear supraspinatus tendon is present with retraction of the patellar component from the greater tuberosity of 1.03 cm. The fibers of the supraspinatus tendon remaining intact and the greater tuberosity insertion site demonstrated moderate tendinosis. A moderate-sized glenohumeral joint effusion is present with communication to the subacromial/subdeltoi d bursal regions. Normal infraspinatus tendon. Normal subscapularis tendon. Normal teres minor tendon. Normal supraspinatus muscle. Normal infraspinatus muscle. Normal subscapularis muscle. Normal teres minor muscle. Normal glenohumeral articulation. Normal humeral head and visualized proximal humerus. Normal biceps labral complex. Normal intracapsular long biceps tendon. Normal labrum. Normal capsulo- ligamentous complex. Normal rotator interval. There is mild osteoarthritis of the acromioclavicular articulation. There is a Type II morphology (curved), with a neutral orientation. Normal visualized coracohumeral and coracoacromial ligaments. Normal quadrilateral space. Normal axillary space. Normal deltoid muscle. Normal trapezius muscle. MRI/Upper Ext Joint Only(Routine) IMPRESSION: 1. A large full-thickness tear supraspinatus tendon is present with retraction of the patellar component from the greater tuberosity of 1.03 cm. The fibers of the supraspinatus tendon remaining intact and the greater tuberosity insertion site demonstrated moderate tendinosis. A moderate-sized glenohumeral joint effusion is present with communication to the subacromial/subdeltoi d bursal regions. Electronically Signed: Eliceo Bill MD at 14:19 EST , CC: Dr. Bolivar Collins MD Desk Top Publisher: Signed Normal [facility] Shoulder min 2 Viewson 09-21 Shoulder min 2 Views [facility] [address] [place] [address] Shoulder min 2 Views MR#: [id number] Acct: [id number] Name: BETTE ZUNIGA Rep #: [id number] : 1940 F 83 From: Fernando Jeronimo MD PCP: Dr. Bolivar Collins MD Status: REG CLI Study: Shoulder min 2 Views Date of Exam: 09/21/24 Exam# [id number] Ordering Dr: Bolivar Collins MD [id number] STUDY: X-RAY - RIGHT SHOULDER REASON FOR EXAM: Female, 83 years old. RIGHT SHOULDER PAIN TECHNIQUE: 4 views of the right shoulder. COMPARISON: None. FINDINGS: Normal glenohumeral articulation. There is mild acromioclavicular arthrosis. Normal acromion. Normal humeral head and visualized proximal humerus. The soft tissue structures are unremarkable. There is no demonstrated fracture. Normal visualized pulmonary apex. RAD/Shoulder min 2 Views IMPRESSION: Mild acromioclavicular arthrosis. No demonstrated fracture. Electronically Signed: Fernando Jeronimo MD at 15:49 EDT Reading Location ID and State: [facility] / [place] , Service support , CC: Dr. Bolivar Collins MD Desk Top Publisher: Signed Normal [facility] Cardiology Visit Reporton Cardiology Visit Report [facility] [address] [place], [place] [address] OFFICE VISIT Date of Service: 08/30/24 MR#: [id number] Acct: [id number] Name: BETTE ZUNIGA Rep #: [id number] : 1940 Provider: DOREEN perez Age/Sex: 83/F Location: [facility] Status: Signed [facility] History of Present Illness Details: Pleasant 83-year-old lady who presents to the office today for a cardiovascular follow up visit. She has no previous cardiac history who presents for an evaluation of her heart rhythm after noting on her Apple Watch in general December of 2022 that she was in A-fib. She thinks that she was in for a very short period of time. She had been under tremendous amount of stress with her who had developed esophageal cancer. She states that her in November of this year, and she has felt much better. She states her stress level has decreased. From a cardiac standpoint, the patient is doing well. She denies any palpitations, chest pain, pressure, or heaviness. She denies SOB, Orthopnea, and PND. She does not have bleeding issues; no blood in urine, stool or nosebleeds. She denies any decrease in energy level, myalgias, or claudication. She does not have edema, or sudden weight gain. She denies dizziness, lightheadedness, syncopal or near syncopal episodes, and headaches. She does monitor her heart rates at home with her watch. She states there have been a few times where her heart rates have been in the 40's during sleep. She does swim for an hour a day during the summer hours. Intake Vital Signs 08/25/23 14:22 08/30/24 09:32 08/30/24 09:36 Height 5 ft 3 in 5 ft 3 in 5 ft 3 in Weight: 148 lb BMI 26.2 BP 145/76 H Blood Pressure Location Lt brachial Position Sitting Respiration 18 Pulse 52 L Pulse Source Monitor Pulse Oximetry (%) 96 Intake Visit Reasons: 1 Y FU Janitor Head Required: No Is patient in pain?: No Allergies chlorpromazine (From Thorazine) Allergy (Unknown, Verified 08/30/24 10:06) Unknown Medications ???Medication ???Instructions ???Recorded ???Confirmed ???Type calcium 600 mg (as 1 tab PO DAILY 07/27/23 08/30/24 History carbonate)-vitamin D3 5 mcg (200 unit) tablet (Calcium 600 + D(3)) cetirizine 10 mg tablet (Zyrtec) 5 mg PO DAILY PRN 07/27/23 08/30/24 History cholecalciferol (vitamin D3) 25 25 mcg PO DAILY 07/27/23 08/30/24 History mcg (1,000 unit) tablet guaifenesin 600 mg tablet, 600 mg PO BID 07/27/23 08/30/24 History extended release 12 hr (Mucinex) multivitamin with minerals 1 cap PO DAILY 07/27/23 08/30/24 History omega 9-qpp-uqc-fish oil 1,200 mg cap PO 07/27/23 08/30/24 History (144 mg-216 mg) capsule (Fish Oil) psyllium [Metamucil] PO 07/27/23 08/30/24 History turmeric 400 mg capsule 400 mg PO DAILY 07/27/23 08/30/24 History cranberry 400 mg capsule 400 mg PO BID 08/25/23 08/30/24 History amlodipine 5 mg tablet 5 mg PO DAILY #60 tabs 02/11/24 08/30/24 Rx metoprolol succinate 50 mg 25 mg (1/2 x 50 mg) PO DAILY #90 08/30/24 08/30/24 Rx tablet,extended release 24 hr tabs (Toprol XL) Have you fallen in the past year?: Yes PFSH Medical History Paroxysmal atrial fibrillation Eczema Vitamin D deficiency Hyperlipidemia Depression Allergic rhinitis Asthma Surgical History History of bilateral cataract extraction History of hysterectomy History of tonsillectomy Family History Mother Dementia Colon cancer Anemia Father CVA (cerebral vascular accident) Grandmother Diabetes Social History Smoking Status: Former smoker alcohol intake: never substance use type: does not use caffeine: Yes Type: coffee Number of servings: 2 ROS Const Const: Negative for fatigue, weakness, fever(s), headache(s), chills, frequent falls, weight gain or weight loss Eyes Eyes: Negative for blind spots, loss of peripheral vision, transient loss of vision, blurry vision, change in vision, double vision, floaters or tunnel vision ENT ENT: Negative for headache(s), dizziness, Nosebleed/epistaxis, balance problems or neck pain Cardio Chest Pain: No Palpitations: No Edema: None Muscle aches with walking: None Resp Respiratory: Negative for SOB with activity, SOB at rest or SOB orthopnea SOB lying down GI GI: Negative nausea, vomiting, heartburn, bloating, vomiting blood/hematemesis, bright, red blood in stools or black,tarry stools Musc Musc: Negative for muscle aches/ myalgia, muscle weakness, joint pain or balance problems Neuro Neuro: Negative for dizziness, lightheadedness, ne (more content not included)... Normal [facility] PT D/C Summary (1)on 024 PT D/C Summary (1) [facility] [address] [place] [address] / REHABILITATION SERVICES DISCHARGE SUMMARY MR#: [id number] Acct: [id number] Name: BETTE ZUNIGA Rep #: [id number] : 1940 83 From: Gregorio Tomlin PT, Cert. T, [facility] Referring Dr.: Dr. Bolivar Collins MD Status: REG R Insurance: COUNT INCLUDES THE [facility] HMO SELF PAY INSURANCE Discharge Summary D/C summary: It has been my pleasure to treat BETTE ZUNIGA referred by Dr. Bolivar Collins MD, with the diagnosis of RIGHT SHOULDER CUFF TENINITIS for a total of 9 visit(s). Discharge Date: Please see the following information for a summary of their discharge status. Subjective Subjective: Doing well Pain Right Shoulder: Pain Intensity (Out of 10): 0 Overall Improvement % Improvement: 75 Objective Objective/Function: POSTURE: mild forward posture PALPATION:unremarkabl e NEURO: denies paresthesia/tingling AROM: shoulder flexion 160 degrees ,abduction 155 degrees ,ER 90 degrees ,IR T10 PROM: shoulder flexion /abduction 160 degrees MMT: ( peak force) infraspinatus 17.2 ,supraspinatus 9.2,subscapularis 15.2 , deltoid 10.1 Goals Goal 1:: Patient to be I with HEP Goal 2:: Patient to demonstrate 50% improvement with improved function with ADLS Goal 3:: Patient to improve AROM shoulder flexion/abduction 150 degrees to reach in cupboard Goal 4:: Patient to improve peak force RTC and deltoid by 5-10# to improve ADLS and housework Goal 5:: Patient to improve Quick dash by 5 points to improve QOL and function Plan Plan: D/C D/C Information d/c sentence: If there are questions or concerns regarding this patient's physical therapy, please feel free to call me at [phone]. Thank you for the referral of this patient. Sincerely, Gregorio Tomlin, PT, Cert MDT, OCS Balance/Gait/Function al tests Balance/Special Test Scores Quick DASH Score: 6.8175 Improvement % Improvement: 75 08/03/24 1048 CC: Dr. Bolivar Collins MD JLA Signed Normal [facility] Absolute lymphocyte countOrd ered By: Bolivar Collins on 12-29-2023 Lymphocytes Auto (Unsp spec) [#/Vol] 1.57 10*3/uL 0.83-4.51 [facility] Automated lymphocyte count a s percentage of total leukocytesOrdered By: Bolivar Collins on 12-29-2023 Lymphocytes/100 WBC Auto (Unsp spec) 28.6 % 19-41 [facility] Basophil percentageOrdered B y: Bolivar Collins on 12-29-2023 Basophils/100 WBC (Bld) 0.7 % 0-1 [facility] Bilirubin [Mass/Vol] 0.50 mg/dL 0.20-1.00 [facility] Comment on above: For patients on eltr ombopag therapy, use of Dimension [place] TBIL is not recommended. Chloride [Moles/Vol] 108 mmol/L 98-107 [facility] Eosinophils/100 WBC (Bld) 1.6 % 0-5 [facility] Glucose [Mass/Vol] 116 mg/dL 74-106 [facility] Comment on above: Fasting Glucose resu lt from 100 to 125 mg/dL suggests IMPAIRED HOMEOSTASIS per A.D.A. criteria. Hemoglobin (Bld) [Mass/Vol] 13.5 g/dL 12.0-15.0 [facility] Monocytes/100 WBC (Bld) 9.3 % 0-10 [facility] Neutrophils (Bld) [#/Vol] 3.3 10*3/uL 2.0-7.7 [facility] Neutrophils/100 WBC (Bld) 59.6 % 47-70 [facility] Potassium [Moles/Vol] 4.1 mmol/L 3.5-5.1 [facility] Protein [Mass/Vol] 7.3 g/dL 6.4-8.2 [facility] Sodium [Moles/Vol] 139 mmol/L 136-145 [facility] WBC (Bld) [#/Vol] 5.5 10*3/uL 4.4-11.0 [facility] Determination of erythrocyte mean corpuscular volume (MCV)Ordered By: Bolivar Collins on 12-29-2023 MCV (RBC) [Entitic vol] 92.4 fL 81-99 [facility] Erythrocyte distribution wid th ratioOrdered By: Bolivar Collins 12-29-2023 Erythrocyte distribution width (RBC) [Ratio] 11.9 % 11.6-14.6 [facility] Erythrocyte distribution wid th standard deviationOrdered By: Bolivar Collins on 12-29-2023 Erythrocyte distribution width (RBC) [Entitic vol] 40.2 fL 35.1-43.9 [facility] Hematocrit Auto (Bld) [Volum e fraction]Ordered By: Bolivar Collins 12-29-2023 Hematocrit (Bld) [Volume fraction] 41.3 % 37-47 [facility] Immature granulocytes/100 WB C Auto (Bld)Ordered By: Bolivar Collins on 12-29-2023 Immature granulocytes/100 WBC (Bld) 0.200 % 0.0-0.9 [facility] Comment on above: IG% - Immature Granu locytes (promyelocytes, myelocytes and metamyelocytes) > 1% indicates that a LEFT SHIFT is Present. Laboratory - Chemistry and C hemistry - challengeOrdered By: Bolivar Collins on 12-29-2023 Albumin/Globulin [Mass ratio] 1.1 {ratio} 0.9-2.4 [facility] ALP [Catalytic activity/Vol] 59 U/L 45-117 [facility] ALT [Catalytic activity/Vol] 28 U/L 13-56 [facility] CO2 [Moles/Vol] 28.0 mmol/L 21.0-32.0 [facility] Globulin (S) [Mass/Vol] 3.4 g/dL 2.2-4.2 [facility] Urea nitrogen/Creatinine [Mass ratio] 15.1 mg/mg 10-20 [facility] - Hematology and Cell countsOrdered By: Bolivar Collins on 12-29-2023 MCH (RBC) [Entitic mass] 30.2 pg 27.0-32.0 [facility] MCHC (RBC) [Mass/Vol] 32.7 g/dL 32-36 [facility] Nucleated RBC/100 WBC (Bld) [Ratio] 0 % 0-5 [facility] Platelets (Bld) [#/Vol] 271 10*3/uL 150-450 [facility] No Panel InformationOrdered By: Bolivar Collins on 12-29-2023 Estimated GFR (MDRD) Amer 89 mL/min >60 [facility] Comment on above: GFR Calc Estimated GFR (MDRD) Non-Af Amer 74 mL/min >60 [facility] Comment on above: Non- GFR Calc Vitamin D 25-Hydroxy 55.2 ng/mL [facility] Comment on above: Vitamin D 25(OH) Sta tus Range Deficiency <20 ng/mL (50nmol/L) Insufficiency 20 - 30 ng/mL (50 - 75 nmol/L) Sufficiency 30 - 100 ng/mL (75 - 250 nmol/L) Toxicity >100 ng/mL (>250 nmol/L) Platelet mean volume Serge-Ec ker (Bld) [Entitic vol]Ordered By: Bolivar Collins on 12-29-2023 Platelet mean volume (Bld) [Entitic vol] 10.3 fL 6.2-12.0 [facility] RBC Auto (Bld) [#/Vol]Ordere d By: Bolivar Collins on 12-29-2023 RBC (Bld) [#/Vol] 4.47 10*6/uL 4.2-5.4 [facility] Serum or plasma calcium estefania urement (mass/volume)Ordered By: Bolivar Collins on 12-29-2023 Calcium [Mass/Vol] 8.9 mg/dL 8.5-10.1 [facility] Serum or plasma creatinine m easurement (mass/volume)Ordered By: Bolivar Collins on 12-29-2023 Creatinine [Mass/Vol] 0.79 mg/dL 0.55-1.02 [facility] Comment on above: The validity of the calculated GFR & GFRAA in patients over 70 years has not been determined. Clinical correlation is essential. Serum or plasma thyroid stim ulating hormone (TSH) measurement (units/volume)Ordered By: Bolivar Collins on 12-29-2023 TSH Qn 0.71 uIU/mL 0.358-3.74 [facility] Serum or plasma urea nitroge n measurement (mass/volume)Ordered By: Bolivar Collins on 12-29-2023 Urea nitrogen [Mass/Vol] 12 mg/dL 7-18 [facility] Thin prep Papanicolaou smear with manual screeningOrdered By: Bolivar Collins on 12-29-2023 Thin prep Papanicolaou smear with manual screening 3.9 g/dL 3.2-5.0 [facility] Thin prep Papanicolaou smear with manual screening 22 U/L 15-37 [facility] Thin prep Papanicolaou smear with manual screening 3 5-15 [facility] Absolute lymphocyte countOrd ered By: Bolivar Collins on 06-30-2023 Lymphocytes Auto (Unsp spec) [#/Vol] 1.48 10*3/uL 0.83-4.51 [facility] Basophil percentageOrdered B y: Bolivar Collins on 06-30-2023 Basophils/100 WBC (Bld) 0.7 % 0-1 [facility] Bilirubin [Mass/Vol] 0.40 mg/dL 0.20-1.00 [facility] Comment on above: For patients on eltr ombopag therapy, use of Dim[place] TBIL is not recommended. Chloride [Moles/Vol] 108 mmol/L 98-107 [facility] Eosinophils/100 WBC (Bld) 2.3 % 0-5 [facility] Glucose [Mass/Vol] 93 mg/dL 74-106 [facility] Neutrophils (Bld) [#/Vol] 2.3 10*3/uL 2.0-7.7 [facility] Neutrophils/100 WBC (Bld) 53.8 % 47-70 [facility] Potassium [Moles/Vol] 3.7 mmol/L 3.5-5.1 [facility] Protein [Mass/Vol] 7.1 g/dL 6.4-8.2 [facility] Sodium [Moles/Vol] 140 mmol/L 136-145 [facility] WBC (Bld) [#/Vol] 4.3 10*3/uL 4.4-11.0 [facility] Blood erythrocytes count (nu mber/volume)Ordered By: Bolivar Collins on 06-30-2023 RBC (Bld) [#/Vol] 4.48 10*6/uL 4.2-5.4 [facility] Blood hemoglobin measurement (mass/volume)Ordered By: Bolivar Collins on 06-30-2023 Hemoglobin (Bld) [Mass/Vol] 13.6 g/dL 12.0-15.0 [facility] Blood lymphocytes/100 leukoc ytesOrdered By: Bolivar Collins on 06-30-2023 Lymphocytes/100 WBC (Bld) 34.2 % 19-41 [facility] Blood monocytes/100 leukocyt esOrdered By: Bolivar Collins on 06-30-2023 Monocytes/100 WBC (Bld) 8.8 % 0-10 [facility] Blood platelet mean volumeOr dered By: Bolivar Collins on 06-30-2023 Platelet mean volume (Bld) [Entitic vol] 10.7 fL 6.2-12.0 [facility] Determination of erythrocyte mean corpuscular volume (MCV)Ordered By: Bolivar Collins on 06-30-2023 MCV (RBC) [Entitic vol] 92.6 fL 81-99 [facility] Hematocrit Auto (Bld) [Volum e fraction]Ordered By: Bolivar Collins on 06-30-2023 Hematocrit (Bld) [Volume fraction] 41.5 % 37-47 [facility] - Chemistry and C hemistry - challengeOrdered By: Bolivar Collins on 06-30-2023 ALP [Catalytic activity/Vol] 66 U/L 45-117 [facility] ALT [Catalytic activity/Vol] 36 U/L 13-56 [facility] CO2 [Moles/Vol] 28.0 mmol/L 21.0-32.0 [facility] Globulin (S) [Mass/Vol] 3.4 g/dL 2.2-4.2 [facility] Urea nitrogen/Creatinine [Mass ratio] 15.0 mg/mg 10-20 [facility] - Hematology and Cell countsOrdered By: Bolivar Collins on 06-30-2023 Erythrocyte distribution width (RBC) [Entitic vol] 41.5 fL 35.1-43.9 [facility] Erythrocyte distribution width (RBC) [Ratio] 12.1 % 11.6-14.6 [facility] Immature granulocytes/100 WBC (Bld) 0.200 % 0.0-0.9 [facility] Comment on above: IG% - Immature Granu locytes (promyelocytes, myelocytes and metamyelocytes) > 1% indicates that a LEFT SHIFT is Present. MCH (RBC) [Entitic mass] 30.4 pg 27.0-32.0 [facility] Nucleated RBC/100 WBC (Bld) [Ratio] 0 % 0-5 [facility] MCHC Auto (RBC) [Mass/Vol]Or dered By: Bolivar Collins on 06-30-2023 MCHC (RBC) [Mass/Vol] 32.8 g/dL 32-36 [facility] No Panel InformationOrdered By: Bolivar Collins on 06-30-2023 Estimated GFR (MDRD) Amer 98 mL/min >60 [facility] Comment on above: GFR Calc Estimated GFR (MDRD) Non-Af Amer 81 mL/min >60 [facility] Comment on above: Non- GFR Calc Thyroid Stimulating Hormone (TSH) 0.60 uIU/mL 0.358-3.74 [facility] Vitamin D 25-Hydroxy 49.2 ng/mL [facility] Comment on above: Vitamin D 25(OH) Sta tus Range Deficiency <20 ng/mL (50nmol/L) Insufficiency 20 - 30 ng/mL (50 - 75 nmol/L) Sufficiency 30 - 100 ng/mL (75 - 250 nmol/L) Toxicity >100 ng/mL (>250 nmol/L) Platelets bldOrdered By: Bolivar Collins on 06-30-2023 Platelets (Bld) [#/Vol] 236 10*3/uL 150-450 [facility] Serum or plasma albumin estefania urement (mass/volume)Ordered By: Bolivar Collins on 06-30-2023 Albumin [Mass/Vol] 3.7 g/dL 3.2-5.0 [facility] Serum or plasma albumin/glob ulin mass ratioOrdered By: Bolivar Collins on 06-30-2023 Albumin/Globulin [Mass ratio] 1.1 {ratio} 0.9-2.4 [facility] Serum or plasma calcium estefania urement (mass/volume)Ordered By: Bolivar Collins on 06-30-2023 Calcium [Mass/Vol] 9.0 mg/dL 8.5-10.1 [facility] Serum or plasma creatinine m easurement (mass/volume)Ordered By: Bolivar Collins on 06-30-2023 Creatinine [Mass/Vol] 0.74 mg/dL 0.55-1.02 [facility] Comment on above: The validity of the calculated GFR & GFRAA in patients over 70 years has not been determined. Clinical correlation is essential. Serum or plasma urea nitroge n measurement (mass/volume)Ordered By: Bolivar Collins on 06-30-2023 Urea nitrogen [Mass/Vol] 11 mg/dL 7-18 [facility] Thin prep Papanicolaou smear with manual screeningOrdered By: Bolivar Collins on 06-30-2023 Thin prep Papanicolaou smear with manual screening 34 U/L 15-37 [facility] Thin prep Papanicolaou smear with manual screening 4 5-15 [facility] Absolute lymphocyte countOrd ered By: Dr. Collins on 12-24-2022 Lymphocytes Auto (Unsp spec) [#/Vol] 1.96 10*3/uL 0.83-4.51 [facility] Basophil percentageOrdered B y: Dr. Collins on 12-24-2022 Basophils/100 WBC (Bld) 0.4 % 0-1 [facility] Bilirubin [Mass/Vol] 0.40 mg/dL 0.20-1.00 [facility] Comment on above: For patients on eltr ombopag therapy, use of [place] TBIL is not recommended. Chloride [Moles/Vol] 106 mmol/L 98-107 [facility] Eosinophils/100 WBC (Bld) 1.9 % 0-5 [facility] Glucose [Mass/Vol] 84 mg/dL 74-106 [facility] Neutrophils (Bld) [#/Vol] 2.6 10*3/uL 2.0-7.7 [facility] Neutrophils/100 WBC (Bld) 49.8 % 47-70 [facility] Potassium [Moles/Vol] 4.0 mmol/L 3.5-5.1 [facility] Protein [Mass/Vol] 7.3 g/dL 6.4-8.2 [facility] Sodium [Moles/Vol] 141 mmol/L 136-145 [facility] WBC (Bld) [#/Vol] 5.2 10*3/uL 4.4-11.0 [facility] Blood erythrocytes count (nu mber/volume)Ordered By: Dr. Collins on 12-24-2022 RBC (Bld) [#/Vol] 4.57 10*6/uL 4.2-5.4 [facility] Blood hemoglobin measurement (mass/volume)Ordered By: Dr. Collins on 12-24-2022 Hemoglobin (Bld) [Mass/Vol] 13.8 g/dL 12.0-15.0 [facility] Blood lymphocytes/100 leukoc ytesOrdered By: Dr. Collins on 12-24-2022 Lymphocytes/100 WBC (Bld) 37.7 % 19-41 [facility] Blood monocytes/100 leukocyt esOrdered By: Dr. Collins on 12-24-2022 Monocytes/100 WBC (Bld) 10.0 % 0-10 [facility] Blood platelet mean volumeOr dered By: Dr. Collins on 12-24-2022 Platelet mean volume (Bld) [Entitic vol] 10.8 fL 6.2-12.0 [facility] Determination of erythrocyte mean corpuscular volume (MCV)Ordered By: Dr. Collins on 12-24-2022 MCV (RBC) [Entitic vol] 93.0 fL 81-99 [facility] Hematocrit Auto (Bld) [Volum e fraction]Ordered By: Dr. Collins on 12-24-2022 Hematocrit (Bld) [Volume fraction] 42.5 % 37-47 [facility] Laboratory - Chemistry and C hemistry - challengeOrdered By: Dr. Collins on 12-24-2022 ALP [Catalytic activity/Vol] 77 U/L 45-117 [facility] ALT [Catalytic activity/Vol] 62 U/L 13-56 [facility] CO2 [Moles/Vol] 27.0 mmol/L 21.0-32.0 [facility] Globulin (S) [Mass/Vol] 3.4 g/dL 2.2-4.2 [facility] Urea nitrogen/Creatinine [Mass ratio] 16.5 mg/mg 10-20 [facility] - Hematology and Cell countsOrdered By: Dr. Collins on 12-24-2022 Erythrocyte distribution width (RBC) [Entitic vol] 40.6 fL 35.1-43.9 [facility] Erythrocyte distribution width (RBC) [Ratio] 11.9 % 11.6-14.6 [facility] Immature granulocytes/100 WBC (Bld) 0.200 % 0.0-0.9 [facility] Comment on above: IG% - Immature Granu locytes (promyelocytes, myelocytes and metamyelocytes) > 1% indicates that a LEFT SHIFT is Present. MCH (RBC) [Entitic mass] 30.2 pg 27.0-32.0 [facility] Nucleated RBC/100 WBC (Bld) [Ratio] 0 % 0-5 [facility] MCHC Auto (RBC) [Mass/Vol]Or dered By: Dr. Collins on 12-24-2022 MCHC (RBC) [Mass/Vol] 32.5 g/dL 32-36 [facility] No Panel InformationOrdered By: Dr. Collins on 12-24-2022 Estimated GFR (MDRD) Amer 90 mL/min >60 [facility] Comment on above: GFR Calc Estimated GFR (MDRD) Non-Af Amer 75 mL/min >60 [facility] Comment on above: Non- GFR Calc Thyroid Stimulating Hormone (TSH) 0.92 uIU/mL 0.358-3.74 [facility] Vitamin D 25-Hydroxy 39.6 ng/mL [facility] Comment on above: Vitamin D 25(OH) Sta tus Range Deficiency <20 ng/mL (50nmol/L) Insufficiency 20 - 30 ng/mL (50 - 75 nmol/L) Sufficiency 30 - 100 ng/mL (75 - 250 nmol/L) Toxicity >100 ng/mL (>250 nmol/L) Platelets bldOrdered By: Dr. Collins on 12-24-2022 Platelets (Bld) [#/Vol] 258 10*3/uL 150-450 [facility] Serum or plasma albumin estefania urement (mass/volume)Ordered By: Dr. Collins on 12-24-2022 Albumin [Mass/Vol] 3.9 g/dL 3.2-5.0 [facility] Serum or plasma albumin/glob ulin mass ratioOrdered By: Dr. Collins on 12-24-2022 Albumin/Globulin [Mass ratio] 1.1 {ratio} 0.9-2.4 [facility] Serum or plasma calcium estefania urement (mass/volume)Ordered By: Dr. Collins on 12-24-2022 Calcium [Mass/Vol] 9.4 mg/dL 8.5-10.1 [facility] Serum or plasma creatinine m easurement (mass/volume)Ordered By: Dr. Collins on 12-24-2022 Creatinine [Mass/Vol] 0.79 mg/dL 0.55-1.02 [facility] Comment on above: The validity of the calculated GFR & GFRAA in patients over 70 years has not been determined. Clinical correlation is essential. Serum or plasma urea nitroge n measurement (mass/volume)Ordered By: Dr. Collins on 12-24-2022 Urea nitrogen [Mass/Vol] 13 mg/dL 7-18 [facility] Thin prep Papanicolaou smear with manual screeningOrdered By: Dr. Collins on 12-24-2022 Thin prep Papanicolaou smear with manual screening 43 U/L 15-37 [facility] Thin prep Papanicolaou smear with manual screening 8 5-15 [facility] Absolute lymphocyte counton 06-24-2022 Lymphocytes Auto (Unsp spec) [#/Vol] 1.98 10*3/uL 0.83-4.51 [facility] Work Phone: Basophil percentageon 2021 Basophils/100 WBC (Bld) 0.4 % 0-1 [facility] Work Phone: [phone] Bilirubin [Mass/Vol] 0.40 mg/dL 0.20-1.00 [facility] Work Phone: Comment on above: For patients on eltr ombopag therapy, use of [place] TBIL is not recommended. Chloride [Moles/Vol] 107 mmol/L 98-107 [facility] Work Phone: Eosinophils/100 WBC (Bld) 2.0 % 0-5 [facility] Work Phone: [phone] Glucose [Mass/Vol] 84 mg/dL 74-106 [facility] Work Phone: [phone] Neutrophils (Bld) [#/Vol] 2.1 10*3/uL 2.0-7.7 [facility] Work Phone: Neutrophils/100 WBC (Bld) 44.6 % 47-70 [facility] Work Phone: [phone] Potassium [Moles/Vol] 4.0 mmol/L 3.5-5.1 [facility] Work Phone: [phone] Protein [Mass/Vol] 7.2 g/dL 6.4-8.2 [facility] Work Phone: [phone] Sodium [Moles/Vol] 137 mmol/L 136-145 [facility] Work Phone: WBC (Bld) [#/Vol] 4.6 10*3/uL 4.4-11.0 [facility] Work Phone: Blood erythrocytes count (nu mber/volume)on 06-24-2022 RBC (Bld) [#/Vol] 4.40 10*6/uL 4.2-5.4 [facility] Work Phone: [phone] Blood hemoglobin measurement (mass/volume)on 06-24-2022 Hemoglobin (Bld) [Mass/Vol] 13.9 g/dL 12.0-15.0 [facility] Work Phone: Blood lymphocytes/100 leukoc yteson 06-24-2022 Lymphocytes/100 WBC (Bld) 43.0 % 19-41 [facility] Work Phone: Blood monocytes/100 leukocyt eson 06-24-2022 Monocytes/100 WBC (Bld) 9.8 % 0-10 [facility] Work Phone: Blood platelet mean volumeon 06-24-2022 Platelet mean volume (Bld) [Entitic vol] 10.3 fL 6.2-12.0 [facility] Work Phone: Determination of erythrocyte mean corpuscular volume (MCV)on 06-24-2022 MCV (RBC) [Entitic vol] 92.5 fL 81-99 [facility] Work Phone: Hematocrit Auto (Bld) [Volum e fraction]on 06-24-2022 Hematocrit (Bld) [Volume fraction] 40.7 % 37-47 [facility] Work Phone: Laboratory - Chemistry and C hemistry - challengeon 06-24-2022 ALP [Catalytic activity/Vol] 68 U/L 45-117 [facility] Work Phone: ALT [Catalytic activity/Vol] 37 U/L 13-56 [facility] Work Phone: CO2 [Moles/Vol] 24.0 mmol/L 21.0-32.0 [facility] Work Phone: Globulin (S) [Mass/Vol] 3.3 g/dL 2.2-4.2 [facility] Work Phone: Urea nitrogen/Creatinine [Mass ratio] 17.8 mg/mg 10-20 [facility] Work Phone: Laboratory - Hematology and Cell countson 06-24-2022 Erythrocyte distribution width (RBC) [Entitic vol] 41.1 fL 35.1-43.9 [facility] Work Phone: Erythrocyte distribution width (RBC) [Ratio] 12.0 % 11.6-14.6 [facility] Work Phone: Immature granulocytes/100 WBC (Bld) 0.200 % 0.0-0.9 [facility] Work Phone: Comment on above: IG% - Immature Granu locytes (promyelocytes, myelocytes and metamyelocytes) > 1% indicates that a LEFT SHIFT is Present. MCH (RBC) [Entitic mass] 31.6 pg 27.0-32.0 [facility] Work Phone: Nucleated RBC/100 WBC (Bld) [Ratio] 0 % 0-5 [facility] Work Phone: MCHC Auto (RBC) [Mass/Vol]on 06-24-2022 MCHC (RBC) [Mass/Vol] 34.2 g/dL 32-36 [facility] Work Phone: No Panel Informationon 06-24 Estimated GFR (MDRD) Amer 99 mL/min >60 [facility] Work Phone: Comment on above: GFR Calc Estimated GFR (MDRD) Non-Af Amer 82 mL/min >60 [facility] Work Phone: Comment on above: Non- GFR Calc Thyroid Stimulating Hormone (TSH) 0.53 uIU/mL 0.358-3.74 [facility] Work Phone: Vitamin D 25-Hydroxy 56.0 ng/mL [facility] Work Phone: Comment on above: Vitamin D 25(OH) Sta tus Range Deficiency <20 ng/mL (50nmol/L) Insufficiency 20 - 30 ng/mL (50 - 75 nmol/L) Sufficiency 30 - 100 ng/mL (75 - 250 nmol/L) Toxicity >100 ng/mL (>250 nmol/L) Platelets bldon 06-24-2022 Platelets (Bld) [#/Vol] 243 10*3/uL 150-450 [facility] Work Phone: Serum or plasma albumin estefania urement (mass/volume)on 06-24-2022 Albumin [Mass/Vol] 3.9 g/dL 3.2-5.0 [facility] Work Phone: Serum or plasma albumin/glob ulin mass ratioon 06-24-2022 Albumin/Globulin [Mass ratio] 1.2 {ratio} 0.9-2.4 [facility] Work Phone: Serum or plasma calcium estefania urement (mass/volume)on 06-24-2022 Calcium [Mass/Vol] 9.2 mg/dL 8.5-10.1 [facility] Work Phone: Serum or plasma creatinine m easurement (mass/volume)on 06-24-2022 Creatinine [Mass/Vol] 0.73 mg/dL 0.55-1.02 [facility] Work Phone: Comment on above: The validity of the calculated GFR & GFRAA in patients over 70 years has not been determined. Clinical correlation is essential. Serum or plasma urea nitroge n measurement (mass/volume)on 06-24-2022 Urea nitrogen [Mass/Vol] 13 mg/dL 7-18 [facility] Work Phone: Thin prep Papanicolaou smear with manual screeningon 06-24-2022 Thin prep Papanicolaou smear with manual screening 29 U/L 15-37 [facility] Work Phone: Thin prep Papanicolaou smear with manual screening 6 5-15 [facility] Work Phone: Vital Signs Date Time Vital Sign Value Performing Clinician Faci lity 08-25-2023 14:22-040 Body height 160.[address] Bolivar Collins Work Phone: [facility] 08-25-2023 14:22-0400 Body mass index (BMI) [Ratio] 26.4 kg/m2 Dr. Bolivar Collins Work Phone: [facility] 08-25-2023 14:22-0400 Body weight 67.[address] Bolivar Collins Work Phone: [facility] 08-25-2023 14:22-0400 Diastolic blood pressure 81 mm[Hg] Dr. Bolivar Collins Work Phone: [facility] 08-25-2023 14:22-0400 Heart rate 68 /min Dr. Bolivar Collins Work Phone: [facility] 08-25-2023 14:22-0400 Respiratory rate 16 /min Dr. Bolivar Collins Work Phone: [facility] 08-25-2023 14:22-0400 Systolic blood pressure 177 mm[Hg] Dr. Bolivar Collins Work Phone: [facility] Encounters Encounter Date Encounter Type Care Provider Facility Start: 07-16-2025 ambulatory Bolivar Chi Roya Facility:[facility] Start: 07-05-2025 End: 07-05-2025 ambulatory Bolivar Chi Roya Facility:[facility] Start: 04-20-2025 End: 04-20-2025 ambulatory Bolivar Chi Roya Facility:[facility] Start: 04-19-2025 End: 04-19-2025 ambulatory Pablo Sissumanth Facility:[facility] Start: 04-14-2025 End: 04-14-2025 Emergency department patient visit Bolivar Chi Roya Facility:[facility] Start: 01-02-2025 End: 01-02-2025 ambulatory Bolivar Chi Roya Facility:[facility] Start: 10-16-2024 End: 10-16-2024 ambulatory Bolivar Chi Roya Facility:[facility] Start: 09-21-2024 End: 09-21-2024 ambulatory Bolivar Chi Roya Facility:[facility] Start: 08-30-2024 End: 08-30-2024 ambulatory Bolivar Chi Roya Facility:[facility] Start: 08-03-2024 End: 08-03-2024 ambulatory Bolivar Chi Roya Facility:[facility] Start: 01-01-2024 End: 01-01-[address] Bolivar Collins Work Phone: [facility] Work Phone: Start: 01-01-2024 End: 01-01-[address] Bolivar Collins Work Phone: [facility] - [facility] Work Phone: Start: 12-29-2023 End: 12-29-[address] Bolivar Collins Work Phone: [facility]-Laboratory, Phy Office 3rd Flr Start: 12-27-2023 End: 12-27-[address] Bolivar Collins Work Phone: [facility] Work Phone: Start: 12-27-2023 End: 12-27-[address] Bolivar Collins Work Phone: [facility]-Cat Scan, [facility] Work Phone: Start: 12-20-2023 End: 12-20-[address] Bolivar Collins Work Phone: [facility] Work Phone: Start: 12-20-2023 End: 12-20-[address] Bolivar Collins Work Phone: [facility]-Radiology, [facility] Work Phone: Start: 09-08-2023 Non-patient / Non-visit Dr. Colt Collins Work Phone: [facility] Work Phone: Start: 09-06-2023 Non-patient / Non-visit Dr. Colt Collins Work Phone: [facility] Start: 09-06-2023 End: 09-06-[address] Bolivra Collins Work Phone: [facility] Work Phone: Start: 09-06-2023 End: 09-06-[address] Bolivar Collins Work Phone: [facility] Work Phone: Start: 08-25-2023 End: 08-25-[address] Bolivar Collins Work Phone: [facility] Work Phone: Start: 07-08-2023 End: 07-08-[address] [facility] Work Phone: Start: 07-08-2023 End: 07-08-[address] [facility] Work Phone: Start: 06-30-2023 End: 06-30-[address] [facility] Work Phone: Start: 06-30-2023 End: 06-30-2023 [facility] Start: 12-24-2022 End: 12-24-[address] [facility] Work Phone: Start: 12-24-2022 End: 12-24-2022 [facility] Start: 07-02-2022 End: 07-02-[address] [facility] Start: 06-24-2022 End: 06-24-2022 [facility] Start: 08-11-2021 End: 08-11-2021 Patient encounter procedure Kristofer Harvey MD Work Phone: [facility] [place] Comment on above: Encounter for immuni zation (Primary Dx) Procedures Date Procedure Procedure Detail Performing Clinician Start: 01-01-2024 MRI of brain without contrast Dr. Bolivar Collins Work Phone: Start: 12-27-2023 CT of head without contrast Dr. Bolivar Collins Work Phone: Start: 12-20-2023 Plain x-ray of pelvi s and lower extremity Dr. Bolivar Collins Work Phone: Start: 12-20-2023 X-ray of cervical spine Dr. Bolivar Collins Work Phone: Start: 07-08-2023 Screening mammography Start: 07-02-2022 Screening mammography Start: 08-11-2021 INFLUENZA SEASONAL QUADRIVALENT HIGH DOSE AGE 65+ Kristofer Harvey MD Work Phone: Plan of Treatment Date Care Activity Detail Author Start: 12-27-2010 SHINGRIX VACCINE (2 of 3) ANGLIN GRIX VACCINE (2 of 3) [facility] Start: 2007 ADVANCE DIRECTIVE DISCUSSION ADVANCE DIRECTIVE DISCUSSION [facility] Start: 2007 BONE DENSITY BONE DENSITY [facility] Start: 02-04-2006 Urine microalbumin profile DTAP,TDAP ,TD (1 - Tdap) [facility] Start: 1987 DIABETES SCREEN DIABETES SCREEN [facility] Start: 1960 HEPATITIS C SCREENING HEPATITIS C SC REENING [facility] Start: 1954 Adult depression scr [facility] assessment DEPRESSION SCREENING [facility] Immunizations Immunization Date Immunization Notes Care Provider Fa cility 08-11-2021 influenza, high-dose , quadrivalent vaccine (FLUZONE HIGH DOSE QUADRIVALENT) Kristofer Harvey MD Work Phone: [facility] 11-01-2010 zoster vaccine, live Davion blanquita Harvey MD Work Phone: [facility] 11-11-2009 novel influenza-H1N1 -09, all formulations Kristofer Harvey MD Work Phone: [facility] 10-03-2008 pneumococcal polysaccharide vaccine, 23 valent Kristofer Harvey MD Work Phone: [facility] 09-27-2006 influenza virus vacc ine, unspecified formulation Kristofer Harvey MD Work Phone: [facility] 02-03-2006 tetanus and diphther ia toxoids, not adsorbed, for adult use Kristofer Harvey MD Work Phone: [facility] Payers Date Payer Category Payer Self-pay [id number] 2023 Unknown [id number] Unknown [id number] 2.16.8 [id number] Unknown [id number] 2.16.8 [id number] Unknown [id number] 2.16.8 [id number] Unknown [id number] 2.16.8 [id number] Unknown [id number] 2.16.8 [id number] Unknown [id number] 2.16.8 [id number] Unknown [id number] 2.16.8 [id number] Unknown [id number] 2.16.8 [id number] Unknown [id number] 2.16.8 [id number] Unknown [id number] 2.16.8 [id number] Social History Date Type Detail Facility Start: 10-10-2015 Tobacco smoking stat us [facility] Former smoker [facility] End: 09-16-1983 History of tobacco use Current smoker [facility] Work Phone: Start: 10-10-2015 Tobacco use and exposure Never used [facility] Work Phone: Start: 10-10-2015 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 Start: 1940 Sex Assigned At Female [facility] History of Past illness Narrative 10-10-2015 Note Date & Type Note Facility 10-10-2015 History of Past i llness Narrative Problem Noted Date Resolved Date Encounter for screening for malignant neoplasm o f colon 10/10/2015 10/10/2015 documented as of this encounter (statuses as of 08/12/2021) [facility] Evaluation note Note Date & Type Note Facility Evaluation note Diagnosis Encounter for immunization- Primary Need for other specified prophylactic vaccination against single bacterial disease documented in this encounter [facility] Evaluation note Note Date & Type Note Facility Evaluation note No assessment information availa ble [facility] Work Phone: Evaluation note Note Date & Type Note Facility Evaluation note Diagnosis Onset Date Paroxysmal atrial fibrillation acute [facility] Work Phone: Chief Complaint and Reason for Visit Chief Complaint SCREENING Chief Complaint LABWORK Chief Complaint SCREENING AFIB (ROYA) Paroxysmal atrial fibrillation Amb Documentation Reason for Visit Paroxysmal atrial fi brillation Chief Complaint AFIB (ROYA) Paroxysmal atrial fibrillation Amb Documentation Reason for Visit Paroxysmal atrial fi brillation Chief Complaint Paroxysmal atrial fi brillation Amb Documentation CLOSED HEAD INJURY Chief Complaint Amb Documentation CLOSED HEAD INJURY CLOSED HEAD INJURY Family History No Family History Records Found Relationship Condition Age at Onset Recorded Date/T suha mother Dementia Unknown Malignant neoplasm of colon Unknown Anemia Unknown father Cerebrovascular accident (CVA) Unknown grandmother Diabetes mellitus Unknown Summary Purpose Advance Directives No Advanced Directives Records Found Additional Source Comments Source Comments (unrecognize d section and content) In the event this informatio n is protected by the Federal Confidentiality of Alcohol and Drug Abuse Patient Records regulations: The Federal rules restrict any use of the information to criminally investigate or prosecute any alcohol or drug abuse patient.[facility] Goals (unrecognized section and content) Goals may be documented in a n alternate sectionGoals may be documented in an alternate sectionGoals may be documented in an alternate sectionGoals may be documented in an alternate sectionGoals may be documented in an alternate sectionGoals may be documented in an alternate sectionGoals may be documented in an alternate sectionGoals may be documented in an alternate section Care Teams (unrecognized sec tion and content) Team Status: Active Member Role Status Dates Dr. Bolivar Collins MD Family Provider Active Dr. Bolivar Collins MD Primary Care Provider Active Team Status: Inactive Member Role Status Dates Dr. Bolivar Collins MD Primary Care Provider, Attending Provider Active Team Status: Inactive Member Role Status Dates Dr. Bolivar Collins MD Primary Care Provi lucero, Attending Provider, Referring Provider Active Team Status: Inactive Member Role Status Dates Dr. Bolivar Collins MD Primary Care Provider, Referring Provider Active Dr. Genaro Dobson MD Attending Provider Active Team Status: Active Member Role Status Dates Dr. Bolivar Collins MD Primary Care Provider Active Dr. Genaro Dobson MD Attending Provider Active Team Status: Active Member Role Status Dates Dr. Bolivar Collins MD Primary Care Provider Active Viktoria Webb AIRPLANE PILOT CHIEF, AIRPLANE PILOT CHIEF-C Attending Provider Active Team Status: Inactive Member Role Status Dates Dr. Bolivar Collins MD Primary Care Provider Active Dr. Genaro Dobson MD Attending Provider, Referring Pro vider Active Team Status: Active Member Role Status Dates Dr. Bolivar Collins MD Primary Care Provider, Attending Provider Active INFORMATION SOURCE (unrecogn ized section and content) DATE CREATED AUTHOR 07/15/2025 [facility] FOR RECORDS PERTAINING TO PATIENTS WHO [...] BE BASED ON THE PRIMARY CLINICAL RECORDS. [employer] provides no warranty or guarantee of the accuracy or completeness of information in this document.
== END | disposition home or self-care (01) ==
LOC: OPBI 08:07
PROVIDERS: PCP Family Medicine Geriatric Medicine; Referring Provider Family Medicine Geriatric Medicine; Visit Provider Family Medicine Geriatric Medicine
DX: Z12.31 Encounter for screening mammogram for malignant neoplasm of breast (principal)
CPT/HCPCS: 77063; 77067